=== PATIENT | male | born 1965 | race Caucasian/White ===

== ENCOUNTER → 2019-12-24 14:59 | Outpatient (BNVA) | payer OTHER, MEDICAID, SELFPAY | PROVIDERS: PCP Family Medicine; Visit Provider Family Medicine | DX: E11.9 Type 2 diabetes mellitus without complications (principal); I10 Essential (primary) hypertension; E78.2 Mixed hyperlipidemia; J44.9 Chronic obstructive pulmonary disease, unspecified | CPT/HCPCS: 80053; 80061; 83036; 84443 ==

== ENCOUNTER → 2020-01-11 09:18 | Outpatient (BNVA) | payer OTHER, MEDICAID, SELFPAY | PROVIDERS: PCP Family Medicine; Referring Provider Family Medicine; Visit Provider Anesthesiology Pain Medicine | DX: G89.29 Other chronic pain (principal); M54.16 Radiculopathy, lumbar region; M47.816 Spondylosis without myelopathy or radiculopathy, lumbar region; G62.9 Polyneuropathy, unspecified; F17.210 Nicotine dependence, cigarettes, uncomplicated; Z79.891 Long term (current) use of opiate analgesic | CPT/HCPCS: 99204 ==

== ENCOUNTER → 2020-03-29 15:03 | Outpatient (BNVA) | payer OTHER, MEDICAID, SELFPAY | PROVIDERS: PCP Family Medicine; Visit Provider Family Medicine | DX: K13.79 Other lesions of oral mucosa (principal); I50.9 Heart failure, unspecified; E11.9 Type 2 diabetes mellitus without complications; E78.2 Mixed hyperlipidemia; M54.5 Low back pain; G89.29 Other chronic pain; G62.9 Polyneuropathy, unspecified; I11.0 Hypertensive heart disease with heart failure | CPT/HCPCS: 80053; 80061; 83036; 84443 ==

== ENCOUNTER → 2020-04-01 09:25 | Outpatient (BNVA) | payer OTHER, MEDICAID, SELFPAY | PROVIDERS: PCP Family Medicine; Visit Provider Anesthesiology Pain Medicine | DX: G89.29 Other chronic pain (principal); M47.816 Spondylosis without myelopathy or radiculopathy, lumbar region; M54.16 Radiculopathy, lumbar region; G62.9 Polyneuropathy, unspecified; F17.210 Nicotine dependence, cigarettes, uncomplicated; Z79.891 Long term (current) use of opiate analgesic | CPT/HCPCS: 99213; 99214 ==

== ENCOUNTER → 2020-04-29 10:13 | Outpatient (BNVA) | payer OTHER, MEDICAID, SELFPAY | PROVIDERS: PCP Family Medicine; Visit Provider Nurse Practitioner Family | DX: Z20.828 Contact with and (suspected) exposure to other viral communicable diseases (principal) | CPT/HCPCS: 87635 ==

== ENCOUNTER 2020-06-14 20:00 | Outpatient (CLI) | payer OTHER, MEDICAID, SELFPAY | END 2020-06-14 20:01 | disposition home or self-care (01) | LOC: SLEEP 06-15 09:59 | PROVIDERS: PCP Family Medicine; Visit Provider Family Medicine | DX: G47.33 Obstructive sleep apnea (adult) (pediatric) (principal) | CPT/HCPCS: 95811 ==

== ENCOUNTER 2020-07-22 16:20 | Outpatient (CLI) | payer MEDICARE, MEDICAID, SELFPAY ==
--- NOTE | 2020-07-22 16:00 | CT_ITS ---
WS: [id number] CT LUMBAR SPINE TECHNIQUE: Noncontrast CT of the lumbar spine with coronal and sagittal reformatted images. CLINICAL INFORMATION: M54.16 - Radiculopathy, lumbar region COMPARISON: None. DLP: 2411.[address] scans at [facility] use at least one of these dose optimization techniques: automat ed exposure control; mA and/or kV adjustment per patient size (includes targeted exams where dose is matched to clinical indication); or iterative reconstruction. FINDINGS: Minimal lumbar curve. No acute compression. Hypertrophic changes at L1-2 with anterior and left later al hypertrophic spurring. L1-L2: Mild osteophytic ridging. Mild right foraminal narrowing. Spinal canal is patent. Moderate fac et arthropathy. L2-L3: Tiny left foraminal protrusion with mild left foraminal narrowing. Right foramen is patent. Mo derate facet arthropathy. L3-L4: Minimal annular bulging. Moderate facet arthropathy. Mild right and no significant left forami nal narrowing. Moderate facet arthropathy. L4-L5: Mild disc bulging with a small shallow central protrusion. Slight effacement of ventral thecal sac. Slight narrowing of the subarticular recess left greater than right. Mild bilateral foraminal n arrowing. Moderate facet arthropathy. L5-S1: Mild disc bulging with a tiny central disc osteophyte protrusion. Slight effacement of the jayde tral thecal sac. Mild right foraminal narrowing. Mild facet arthropathy. Visualized pelvic bony structures: Normal. Paravertebral soft tissues: Normal. CT/CT lumbar spine wo con* [id number] IMPRESSION: 1. Mild lumbar curve. No acute compression. Hypertrophic changes at L1-2. 2. Mild annular bulging with slight narrowing of the subarticular recess bilat erally L4-5. 3. Mild foraminal narrowing more prominent at right L1-2, left L2-3, right L3- 4, left L4-5 and right L5-S1. 4. Moderate facet arthropathy L3-L5.
== END 2020-07-22 16:21 | disposition home or self-care (01) ==
LOC: RAD 16:25
PROVIDERS: PCP Family Medicine; Visit Provider Anesthesiology Pain Medicine
DX: M54.16 Radiculopathy, lumbar region (principal); M47.816 Spondylosis without myelopathy or radiculopathy, lumbar region
CPT/HCPCS: 72131

== ENCOUNTER → 2020-07-26 17:00 | Outpatient (BNVA) | payer MEDICARE, MEDICAID, SELFPAY | PROVIDERS: PCP Family Medicine; Visit Provider Family Medicine | DX: E11.9 Type 2 diabetes mellitus without complications (principal); I10 Essential (primary) hypertension; E78.2 Mixed hyperlipidemia; M51.26 Other intervertebral disc displacement, lumbar region; G89.29 Other chronic pain; G62.9 Polyneuropathy, unspecified | CPT/HCPCS: 80053; 80061; 83036; 84443; 85025 ==

== ENCOUNTER 2020-08-16 06:00 | Outpatient (RCR) | payer MEDICARE, MEDICAID, SELFPAY | END 2020-08-31 23:59 | disposition home or self-care (01) | LOC: TPT 06:00 | PROVIDERS: PCP Family Medicine; Referring Provider Family Medicine; Visit Provider Family Medicine | DX: M51.26 Other intervertebral disc displacement, lumbar region (principal); E11.9 Type 2 diabetes mellitus without complications; I10 Essential (primary) hypertension; E78.2 Mixed hyperlipidemia | CPT/HCPCS: 97110; 97162 ==

== ENCOUNTER 2020-09-01 06:00 | Outpatient (RCR) | payer MEDICARE, MEDICAID, SELFPAY | END 2020-10-01 23:59 | disposition home or self-care (01) | LOC: TPT 06:00 | PROVIDERS: PCP Family Medicine; Referring Provider Family Medicine; Visit Provider Family Medicine | DX: M51.26 Other intervertebral disc displacement, lumbar region (principal); E11.9 Type 2 diabetes mellitus without complications; I10 Essential (primary) hypertension; E78.2 Mixed hyperlipidemia | CPT/HCPCS: 87635; 97110 ==

== ENCOUNTER → 2020-11-01 14:04 | Outpatient (BNVA) | payer MEDICARE, MEDICAID, SELFPAY | PROVIDERS: PCP Family Medicine; Visit Provider Family Medicine | DX: E11.9 Type 2 diabetes mellitus without complications (principal); R60.9 Edema, unspecified; J44.9 Chronic obstructive pulmonary disease, unspecified | CPT/HCPCS: 36416; 82962 ==

== ENCOUNTER → 2020-11-22 00:01 | Outpatient (BNVA) | payer MEDICARE, MEDICAID, SELFPAY | PROVIDERS: PCP Family Medicine; Visit Provider Nurse Practitioner Family | DX: E11.621 Type 2 diabetes mellitus with foot ulcer (principal); L97.509 Non-pressure chronic ulcer of other part of unspecified foot with unspecified severity; L03.90 Cellulitis, unspecified; L03.031 Cellulitis of right toe; L97.512 Non-pressure chronic ulcer of other part of right foot with fat layer exposed | CPT/HCPCS: 80053; 85025 ==

== ENCOUNTER 2020-11-28 08:21 | Outpatient (CLI) | payer MEDICARE, MEDICAID, SELFPAY | END 2020-11-28 08:22 | disposition home or self-care (01) | PROVIDERS: PCP Family Medicine; Visit Provider Emergency Medicine | DX: E11.621 Type 2 diabetes mellitus with foot ulcer (principal); L97.512 Non-pressure chronic ulcer of other part of right foot with fat layer exposed; F17.210 Nicotine dependence, cigarettes, uncomplicated | CPT/HCPCS: 11042; G0463 ==

== ENCOUNTER 2020-11-28 11:11 | Outpatient (CLI) | payer MEDICARE, MEDICAID, SELFPAY ==
--- NOTE | 2020-11-28 11:18 | USCV_ITS ---
Israel Tristan Age: 54 Gender: M : 1965 Exam Date: 11/28/2020 11:33 Ordering Phys: Priti Rosa DO Technologist: DEMI [place]am [place] [facility] [place]: RIGHT LOWER EXTREMITY PAIN, DM ULCER HISTORY: Lower extremity pain. PROCEDURES: Venous duplex imaging was performed in only the right lower extremity. The following venous structures were evaluated: common femoral vein, profunda vein, proximal portion of the greater saphenous vein, superficial femoral vein, and the popliteal vein. In addition, the posterior tibial and peroneal trunk were evaluated. FINDINGS: Normal 2-D Doppler and augmentation and compressibility throughout the lower extremity venous structures. Additional imaging through the proximal calf veins also reveals no thrombus. Limited evaluation of the greater saphenous vein is patent with no thrombus. CONCLUSIONS No DVT right lower extremity. Dr. Thais Stevenson DO (Electronically Signed) Final Date: 28 November 2020 11:53 S
--- NOTE | 2020-11-28 11:18 | XR_ITS ---
WS: [id number] Exam: XR foot RT min 3V* [id number] Date/Time of Exam: 11/28/2020 11:18 AM Reason For Exam: DIABETIC WITH FOOT ULCER; PAIN ALSO FOR ULTRASOUND No fracture or dislocation noted. The distal and middle phalanges of the second toe have been amputat ed. No sign of bone destruction. Old fracture deformity of the proximal phalanx of the fifth toe. No radiopaque soft tissue foreign bodies are seen. XR/XR foot RT min 3V* [id number] IMPRESSION: 1. No fracture or bone destruction noted.
== END 2020-11-28 11:12 | disposition home or self-care (01) ==
LOC: RAD 11:17
PROVIDERS: PCP Family Medicine; Visit Provider Emergency Medicine
DX: E11.621 Type 2 diabetes mellitus with foot ulcer (principal); M79.604 Pain in right leg
CPT/HCPCS: 73630; 93971

== ENCOUNTER 2020-12-12 14:15 | Outpatient (CLI) | payer MEDICARE, SELFPAY | END 2020-12-12 14:16 | disposition home or self-care (01) | LOC: WOUND 14:16 | PROVIDERS: PCP Family Medicine; Visit Provider Emergency Medicine | DX: E11.621 Type 2 diabetes mellitus with foot ulcer (principal); L97.512 Non-pressure chronic ulcer of other part of right foot with fat layer exposed; F17.210 Nicotine dependence, cigarettes, uncomplicated | CPT/HCPCS: 11042 ==

== ENCOUNTER 2020-12-12 15:07 | Outpatient (CLI) | payer MEDICARE, MEDICAID, SELFPAY ==
--- NOTE | 2020-12-12 15:13 | XR_ITS ---
WS: [id number] XR knee RT 4V [id number] REASON FOR EXAM: M25.561 - Pain in right knee FINDINGS: Moderate narrowing of the medial knee joint space. No significant subchondral or other focal bony abn ormality. Lateral knee joint space intact and relatively well-preserved. No focal bony abnormality. Patellofemoral joint space with moderate narrowing laterally. Mild lateral shift and elongation. XR/XR knee RT 4V [id number] IMPRESSION: Mild/moderate osteoarthritis of the right knee.
== END 2020-12-12 15:08 | disposition home or self-care (01) ==
PROVIDERS: PCP Family Medicine; Visit Provider Nurse Practitioner Family
DX: M17.11 Unilateral primary osteoarthritis, right knee (principal)
CPT/HCPCS: 73564

== ENCOUNTER 2020-12-22 13:41 | Outpatient (CLI) | payer MEDICARE, MEDICAID, SELFPAY | END 2020-12-22 13:42 | disposition home or self-care (01) | LOC: WOUND 13:45 | PROVIDERS: PCP Family Medicine; Visit Provider Emergency Medicine | DX: E11.621 Type 2 diabetes mellitus with foot ulcer (principal); L97.512 Non-pressure chronic ulcer of other part of right foot with fat layer exposed; F17.210 Nicotine dependence, cigarettes, uncomplicated | CPT/HCPCS: 11042 ==

== ENCOUNTER → 2021-02-28 16:57 | Outpatient (BNVA) | payer MEDICARE, MEDICAID, SELFPAY | PROVIDERS: PCP Family Medicine; Visit Provider Family Medicine | DX: R05.9 Cough, unspecified (principal) | CPT/HCPCS: 87400 ==

== ENCOUNTER → 2021-05-17 14:48 | Outpatient (BNVA) | payer MEDICARE, MEDICAID, SELFPAY | PROVIDERS: PCP Family Medicine; Visit Provider Family Medicine | DX: E11.9 Type 2 diabetes mellitus without complications (principal); E78.5 Hyperlipidemia, unspecified; I10 Essential (primary) hypertension; R10.31 Right lower quadrant pain; E78.2 Mixed hyperlipidemia; J44.9 Chronic obstructive pulmonary disease, unspecified; N20.0 Calculus of kidney | CPT/HCPCS: 80053; 80061; 81000; 83036; 84443; 85025 ==

== ENCOUNTER 2021-08-05 07:58 | Inpatient (IN) | payer MEDICARE, MEDICAID, SELFPAY ==
[2021-08-05] VITALS (11 sets, daily range): BP systolic 135–186; BP diastolic 92–127; PULSE 76–112; RESP 12–22; TEMP 36.4–36.7; O2SAT 89–93; BMI 51.3
--- NOTE | 2021-08-05 08:20 | ED_ITS ---
HPI - Nausea/Vomiting/Diarrhea General: Chief complaint: Nausea/Vomiting/Diarrhea Stated complaint: N/V Time Seen by Provider: 08/05/21 08:05 Source: patient Mode of arrival: ambulatory Limitations: no limitations History of Present Illness: 55-year-old male presents emergency room complaining of nausea vomiting and periumbilical pain. He was released from [facility] yesterday tells me they did an evaluation of his abdominal pain including evaluating for gallbladder. He has previously had an appendectomy. He has been vomiting he denied any hematemesis coffee-ground emesis no diarrhea. He has not noticed anything that makes it better or worse he did recently start glipizide which is a new medication he is diabetic is only on oral antihyperglycemic's. He denies any dysuria urgency or frequency no chest pain patient has COPD and is chronically on 2 L by nasal cannula. MD elicited complaint: nausea and vomiting Onset (ago): day(s) Description of vomiting: food contents and bilious Associated nausea: Yes Associated abdominal pain: Yes Location of pain: Periumbilical Pain consistency: intermittent Severity: moderate Quality: cramping Exacerbating factors: none Relieving factors: none Associated symtoms: Reports bloating, fatigue, anorexia, malaise, nausea and weakness; Denies anxiety, change in vision, chest pain, cough, diaphoresis, decreased urine output, dizziness, dysuria, epistaxis, fecal incontinence, fevers/chills, headache(s), myalgias, numbness, palpitations, rash, short of breath, syncope, tenesmus or tinnitus Review of Systems Const: Reports: fatigue and malaise; Denies: fever(s), chills, body aches or diaphoresis Eyes: Denies: change in vision ENMT: Denies: throat pain, tinnitus or epistaxis Card: Denies: chest pain, palpitations or syncope Resp: Denies: dyspnea, productive cough or non-productive cough GI: Reports: abdominal pain, nausea, vomiting, bloating and GI cramping; Denies: hematemesis, coffee ground emesis, fecal incontinence or change in bowel habits : Denies: flank pain, difficulty urinating, dysuria, urinary frequency, urinary urgency or hematuria Skin/Breast: Denies: rash or pruritus Neuro: Denies: headache(s) or dizziness Psych: Denies: anxiety PFSH ED PFSH: Medical History CHF (congestive heart failure) COPD (chronic obstructive pulmonary disease) Diabetes mellitus Hypertension Obesity Surgical History S/P appendectomy Family History Other CAD (coronary artery disease) Social History Smoking and tobacco status: current every day smoker Alcohol intake: never Household members: spouse Housing: House Physical Exam Const: ORIENTATION/CONSCIOUSNESS: Yes awake, Yes oriented to person, Yes oriented to place and Yes oriented to time HENMT: COMMON NORMALS: normocephalic, atraumatic and hearing grossly normal bilaterally HEAD & SCALP: normocephalic and atraumatic Resp: COMMON NORMALS: normal respiratory effort, No retractions, No use of accessory muscles and clear to auscultation bilaterally AUSCULTATION: clear to auscultation bilaterally Cardio: COMMON NORMALS: regular rate, regular rhythm and No murmurs present (Cardio) RATE: regular rate RHYTHM: regular rhythm GI: COMMON NORMALS: Soft to palpation and No hepatosplenomegaly present AUSCULTATION: Yes normoactive bowel sounds PALPATION: Yes Soft to palpation, Yes Tenderness to palpation present (GI) (periumbilical), No Guarding due to palpation present (GI) and Yes No hepatosplenomegaly present Extremity: COMMON NORMALS: normal to inspection, capillary refill normal, no clubbing, cyanosis or edema, no calf tenderness and no pedal edema Neuro: SENSORIUM/ORIENTATION: Yes oriented to person, Yes oriented to place and Yes oriented to time Skin: COMMON NORMALS: no rashes or lesions noted GENERAL SKIN EXAM: no rashes or lesions noted Course Vital Signs: Vital signs: Vital Signs Temperature 97.9 F 08/07/21 12:00 Pulse Rate 77 08/07/21 14:53 Respiratory Rate 17 08/07/21 14:53 Blood Pressure 141/96 08/07/21 12:00 Pulse Oximetry 96 08/07/21 14:53 MDM - Nausea/Vomiting/Diarrhea Medical Decision Making Persistent pancreatitis with ongoing nausea and vomiting discussed with h ospitalist will admit. Orders written Medical Records I reviewed the patient's medical records. Lab Data I reviewed the patient's lab results. : 08/07/21 03:14 08/07/21 03:14 Radiology Impressions Abdomen/Pelvis CT 08/05/21 09:35 IMPRESSION: 1. Distended gallbladder with a thin wall and no visible stones. If there is clinical evidence of cholecystitis, then ultrasound should be considered. 2. Incidental findings above. Chest X-Ray 08/05/21 09:35 IMPRESSION: 1. No acute findings. 2. Focal opacity in the lateral left lung base suggest subsegmental atelectasis or scarring. Abdomen Ultrasound 08/06/21 15:09 IMPRESSION: 1. Normal gallbladder. 2. Enlarged hyperechoic liver, consistent with steatosis/steatohepatitis. Laboratory Results WBC 13.4 10^3/uL (4.0-10.0) H 08/05/21 08:30 RBC 5.88 10^6/uL (4.1-5.3) H 08/05/21 08:30 Hgb 18.5 g/dL (11.7-16.6) H 08/05/21 08:30 Hct 54.0 % (42.0-52.0) H 08/05/21 08:30 MCV 91.8 fl (80-94) 08/05/21 08:30 MCH 31.5 pg (28.0-34.0) 08/05/21 08:30 MCHC 34.3 g/dL (30.0-36.0) 08/05/21 08:30 RDW 12.5 % (12.1-15.1) 08/05/21 08:30 Plt Count 221 10^3/cmm (130-400) 08/05/21 08:30 MPV 11.4 fL (7.4-10.4) H 08/05/21 08:30 Neut % (Auto) 76.9 % 08/05/21 08:30 Lymph % (Auto) 16.5 % 08/05/21 08:30 Bucks % (Auto) 4.8 % 08/05/21 08:30 Eos % (Auto) 1.2 % 08/05/21 08:30 Baso % (Auto) 0.4 % 08/05/21 08:30 Neut # (Auto) 10.27 10^3/uL (1.8-7.7) H 08/05/21 08:30 Lymph # (Auto) 2.2 10^3/uL (0.8-4.8) 08/05/21 08:30 Bucks # (Auto) 0.6 10^3/uL (0.2-0.9) 08/05/21 08:30 Eos # (Auto) 0.2 10^3/uL (0.0-0.8) 08/05/21 08:30 Baso # (Auto) 0.1 10^3/uL (0.0-0.1) 08/05/21 08:30 Nucleated RBC % (auto) 0 % 08/05/21 08:30 Nucleated RBCs # 0.0 /100WBC 08/05/21 08:30 Specimen Type Arterial 08/05/21 08:40 Sample Site Radial, right 08/05/21 08:40 ABG pH 7.40 (7.35-7.45) 08/05/21 08:40 ABG pCO2 54.2 mmHg (35-45) H 08/05/21 08:40 ABG pO2 53.6 mmHg (80.0-100.0) L 08/05/21 08:40 ABG HCO3 33.2 mmol/L (22-26) H 08/05/21 08:40 ABG O2 Saturation 89.1 08/05/21 08:40 ABG Base Excess 6.2 mmol/L (-2.0-2.0) H 08/05/21 08:40 Davi Test Pos 08/05/21 08:40 A-a O2 Gradient 14.1 mmHg (5-10) H 08/05/21 08:40 Hematocrit 55.2 % (42-52) H 08/05/21 08:40 Hgb O2 Saturation 86.3 % (95-100) L 08/05/21 08:40 Carboxyhemoglobin 2.9 %THgb (0.4-20.1) 08/05/21 08:40 Methemoglobin 0.3 % (0.4-1.5) L 08/05/21 08:40 Total Hemoglobin 18.0 g/dL (14-18) 08/05/21 08:40 Sodium 142.0 mmol/L (131-143) 08/05/21 08:40 Potassium 3.9 mmol/L (3.5-5.0) 08/05/21 08:40 Glucose 108.0 mg/dL (70-115) 08/05/21 08:40 Ionized Calcium 1.2 mmol/L (1.1-1.4) 08/05/21 08:40 O2 Delivery Device Nc 08/05/21 08:40 O2 Liters/Min 3.0 % 08/05/21 08:40 FiO2 32.0 % 08/05/21 08:40 Bridge Maintenance Worker ID Gd 08/05/21 08:40 Sodium 141 mmol/L (136-145) 08/05/21 08:30 Potassium 4.3 mmol/L (3.5-5.1) 08/05/21 08:30 Chloride 100 mmol/L (98-107) 08/05/21 08:30 Carbon Dioxide 32 mmol/L (22-29) H 08/05/21 08:30 Anion Gap 13.3 (5-19) 08/05/21 08:30 BUN 7 mg/dL (6-20) 08/05/21 08:30 Creatinine 0.8 mg/dL (0.7-1.2) 08/05/21 08:30 GFR Calculation 101.1 mL/min (90-130) 08/05/21 08:30 Glucose 111 mg/dL (65-115) 08/05/21 08:30 Estimat Average Glucose 174 08/05/21 08:30 Hemoglobin A1c 7.7 % (4.0-6.0) H 08/05/21 08:30 Calculated Osmolality 291 mOsm/kg (285-295) 08/05/21 08:30 Calcium 9.4 mg/dL (8.5-10.5) 08/05/21 08:30 Total Bilirubin 0.8 mg/dL (0.15-1.2) 08/05/21 08:30 AST 16 U/L (0-40) 08/05/21 08:30 ALT 30 U/L (0-41) 08/05/21 08:30 Alkaline Phosphatase 101 IU/L (40-130) 08/05/21 08:30 Troponin T Baseline 6 ng/L (0-15) 08/05/21 08:30 Troponin T 120 Minute 6.00 ng/L (0-15) 08/05/21 10:58 Delta Troponin T 0 ABS# (0-10) 08/05/21 10:58 Total Protein 8.1 g/dL (6.6-8.7) 08/05/21 08:30 Albumin 3.8 g/dL (3.5-5.2) 08/05/21 08:30 Globulin 4.3 g/dL (1.3-4.6) 08/05/21 08:30 Lipase 121 U/L (13-60) H 08/05/21 08:30 Urine Color Yellow (Yellow) 08/05/21 08:30 Urine Appearance Clear (CLEAR) 08/05/21 08:30 Urine pH 9 (5-7) H 08/05/21 08:30 Ur Specific [place] 1.020 (1.005-1.030) 08/05/21 08:30 Urine Protein 1+ (Negative) H 08/05/21 08:30 Urine Glucose (UA) 4+ (Normal) H 08/05/21 08:30 Urine Ketones Negative (Negative) 08/05/21 08:30 Urine Blood Neg (Negative) 08/05/21 08:30 Urine Nitrate Negative (Negative) 08/05/21 08:30 Urine Bilirubin Neg (Negative) 08/05/21 08:30 Prot Sulfosalicylic Acd Positive (Negative) 08/05/21 08:30 Urine Urobilinogen Norm mg/dL (Negative) 08/05/21 08:30 Ur Leukocyte Esterase Negative (Negative) 08/05/21 08:30 Urine RBC None /hpf (0-2) 08/05/21 08:30 Urine WBC Rare /hpf (0-5) 08/05/21 08:30 Ur Squamous Epith Cells None /hpf (0-5) 08/05/21 08:30 Amorphous Sediment Not Reportable 08/05/21 08:30 Urine Bacteria None /hpf (NONE) 08/05/21 08:30 Discharge Plan Discharge Patient Disposition: Admitted As Inpatient Admit Provider: Elvira Sharif Clinical Impression: Pancreatitis, Diabetes mellitus, COPD (chronic obstructive pulmonary disease), Obesity, Hypertension, Nausea & vomiting Condition: Stable Discharge Diet: GI Soft Discharge Activity: Resume usual activity and Oxygen as instructed Coding Level of Care Code ED Field Court Researcher for Chg Fwd Exam Detailed
--- NOTE | 2021-08-05 08:27 | PC.NURSE ---
pt placed on continuous spo2, nibp, and cm.
[2021-08-05] MEDS: sodium chloride 0.9% 1,000 ML 999 ML IV ×2 (08:32→13:10)
[2021-08-05] MEDS: ondansetron 2 mg/ML SDV 2 mL 4 MG IVP ×3 (08:32→19:43)
[2021-08-05 08:40] LABS: Basophils # 0.1 10^3/uL (0.0-0.1); Basophils % 0.4 %; Eosinophils # 0.2 10^3/uL (0.0-0.8); Eosinophils % 1.2 %; Hemoglobin 18.5 g/dL (11.7-16.6); Lymphocytes # 2.2 10^3/uL (0.8-4.8); Lymphocytes % 16.5 %; Mean Corpuscular HGB Conc 34.3 g/dL (30.0-36.0); Mean Corpuscular Hemoglobin 31.5 pg (28.0-34.0); Mean Corpuscular Volume 91.8 fl (80-94); Mean Platelet Volume 11.4 fL (7.4-10.4); Monocytes # 0.6 10^3/uL (0.2-0.9); Monocytes % 4.8 %; Neutrophils # 10.27 10^3/uL (1.8-7.7); Neutrophils % 76.9 %; Nucleated Red Blood Cells % 0 %; Platelet Count 221 10^3/cmm (130-400); Red Blood Count 5.88 10^6/uL (4.1-5.3); Red Cell Distribution Width 12.5 % (12.1-15.1); White Blood Count 13.4 10^3/uL (4.0-10.0)
[2021-08-05 08:56] LABS: ABG PCO2 54.2 mmHg (35-45); Alveolar-Arterial Oxygen Gradi 14.1 mmHg (5-10); Arterial Blood Gas Hematocrit 55.2 % (42-52); Base Excess ABG 6.2 mmol/L (-2.0-2.0); Blood Gas Allen Test Pos; Blood Gas Operator Identificat GD; Blood Gas Sample Site Radial, right; Blood Gas Sample Type Arterial; Carboxyhemoglobin 2.9 %THgb (0.4-20.1); HCO3 ABG 33.2 mmol/L (22-26); HGB O2 Sat 86.3 % (95-100); Ionized Calcium Level - ABG 1.2 mmol/L (1.1-1.4); Methemoglobin 0.3 % (0.4-1.5); Oxygen Device NC; Oxygen Saturation ABG 89.1; PO2 ABG 53.6 mmHg (80.0-100.0); Potassium Level - ABG 3.9 mmol/L (3.5-5.0)
[2021-08-05 09:01] LABS: Alanine Aminotransferase 30 U/L (0-41); Albumin Level 3.8 g/dL (3.5-5.2); Alkaline Phosphatase 101 IU/L (40-130); Blood Urea Nitrogen 7 mg/dL (6-20); Calcium 9.4 mg/dL (8.5-10.5); Carbon Dioxide 32 mmol/L (22-29); Chloride 100 mmol/L (98-107); Globulin 4.3 g/dL (1.3-4.6); Glomerular Filtration Rate 101.1 mL/min (90-130); Glucose 111 mg/dL (65-115); Osmolality Calculated 291 mOsm/kg (285-295); Sodium 141 mmol/L (136-145); Total Bilirubin 0.8 mg/dL (0.15-1.2); Total Protein 8.1 g/dL (6.6-8.7)
[2021-08-05 09:04] LABS: Add Urine Microscopic? YES; Bilirubin Urine Neg (Negative); Blood Urine Neg (Negative); Glucose Urine UA 4+ (Normal); Ketones Urine Negative (Negative); Leukocyte Esterase Urine Negative (Negative); Nitrate Urine Negative (Negative); Protein Urine 1+ (Negative); Sulfosalicylic Acid Urine Positive (Negative); Urine Appearance Clear (CLEAR); Urine Color Yellow (Yellow); Urobilinogen Urine Norm (Negative); pH Urine 9 (5-7)
[2021-08-05 09:05] LABS: WBC Urine RARE /hpf (0-5)
[2021-08-05] MEDS: morphine 4 mg/mL SDV 1 mL 2 MG IVP (09:05)
[2021-08-05 09:06] LABS: Add Urine Culture? No
[2021-08-05 09:07] LABS: Anion Gap 13.3 (5-19); Aspartate Amino Transferase 16 U/L (0-40); Potassium 4.3 mmol/L (3.5-5.1)
--- NOTE | 2021-08-05 09:35 | XRR_ITS ---
PROCEDURE INFORMATION: Exam: XR Chest Exam date and time: 08/05/2021 9:48 AM Age: 55 years old Clinical indication: Cough and dyspnea; Additional info: Dyspnea/cough TECHNIQUE: Imaging protocol: XR of the chest. Views: 1 view. COMPARISON: No relevant prior studies available. FINDINGS: Lungs: There is no consolidation. Focal opacity in the left lateral costophrenic sulcus noted. Pleural spaces: There is no pleural effusion or pneumothorax. Heart/Mediastinum: The cardiac silhouette is within normal limits of size given AP technique. Bones/joints: Bones are unremarkable. XR/XR chest 1V portable [id number] IMPRESSION: 1. No acute findings. 2. Focal opacity in the lateral left lung base suggest subsegmental atelectasis or scarring.
--- NOTE | 2021-08-05 09:35 | CTR_ITS ---
PROCEDURE INFORMATION: Exam: CT Abdomen And Pelvis Without Contrast Exam date and time: 08/05/2021 10:28 AM Age: 55 years old Clinical indication: Abdominal pain; Generalized; Prior surgery; Surgery date: 6+ months; Surgery type: Appy TECHNIQUE: Imaging protocol: Computed tomography of the abdomen and pelvis without contrast. Radiation optimization: All CT scans at this facility use at least one of these dose optimization techniques: automated exposure control; mA and/or kV adjustment per patient size (includes targeted exams where dose is matched to clinical indication); or iterative reconstruction. COMPARISON: CR (CHEST, ) 08/05/2021 9:48 AM RADIATION DOSE METRICS: Total DLP (mGy-cm): 2004.76 FINDINGS: Lungs: There is subsegmental atelectasis in the left lung. Liver: The liver is mildly enlarged. There is no focal liver abnormality. Gallbladder and bile ducts: The gallbladder is distended. The wall is thin. No calcified stones are seen. There is no intrahepatic or extrahepatic bile duct dilation. Pancreas: The pancreas is unremarkable. Spleen: The spleen is unremarkable. Adrenal glands: The adrenal glands are unremarkable. Kidneys and ureters: The kidneys are unremarkable. No hydronephrosis or stones. No ureteral dilation. Stomach and bowel: The stomach is unremarkable. The small bowel is nondilated. The colon is unremarkable. Appendix: The appendix is absent. Intraperitoneal space: There is no free air or significant intraperitoneal free fluid. Vasculature: The aorta is unremarkable. There is no aneurysm. Lymph nodes: There is no lymphadenopathy in the retroperitoneum, mesentery, pelvis or inguinal regions. Urinary bladder: The urinary bladder is unremarkable. Reproductive: The prostate and seminal vesicles are unremarkable. Bones/joints: There is mild degenerative disease in the lumbar spine. The pelvis and hips are unremarkable. Soft tissues: The abdominal wall is intact. CT/CT abdomen pelvis wo con [id number] IMPRESSION: 1. Distended gallbladder with a thin wall and no visible stones. If there is clinical evidence of cholecystitis, then ultrasound should be considered. 2. Incidental findings above.
--- NOTE | 2021-08-05 09:36 | ECG_ITS ---
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 Measurements Intervals [place] Rate: 104 P: 40 [place]: 180 QRS: 238 QRSD: 154 T: 9 QT: 378 QTc: 499 Interpretive Statements SINUS TACHYCARDIA RIGHT AXIS DEVIATION [QRS AXIS > 100] RIGHT BUNDLE BRANCH BLOCK [120+ ms QRS DURATION, UPRIGHT V1, 40+ ms S IN I/aVL/V4/V5/V6] ANTERIOR MYOCARDIAL INFARCTION , OF INDETERMINATE AGE [40+ ms Q WAVE AND/OR ST/T ABNORMALITY IN V3/V4] INTERPRETATION BASED ON A DEFAULT AGE OF 40 YEARS No previous ECG available for comparison Electronically Signed On 08-06-2021 9:19:25 CDT by Severiano Villanueva M.D. [email or web address]
[2021-08-05 10:05] LABS: Troponin(5th) Baseline 6 ng/L (0-15)
[2021-08-05 11:07] LABS: Lipase 121 U/L (13-60)
--- NOTE | 2021-08-05 11:36 | ECG_ITS ---
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 Measurements Intervals [place] Rate: 90 P: 13 [place]: 190 QRS: 148 QRSD: 157 T: 63 QT: 408 QTc: 501 Interpretive Statements SINUS RHYTHM RIGHT BUNDLE BRANCH BLOCK [120+ ms QRS DURATION, UPRIGHT V1, 40+ ms S IN I/aVL/V4/V5/V6] LEFT POSTERIOR FASCICULAR BLOCK [QRS AXIS > 109, INFERIOR Q] POSSIBLE ANTERIOR MYOCARDIAL INFARCTION , OF INDETERMINATE AGE [30 ms Q WAVE IN V3/V4, OR R < 0.2 mV IN V4] Compared to ECG 08/05/2021 08:25:38 Left posterior fascicular block now present Sinus tachycardia no longer present Right-axis deviation no longer present Myocardial infarct finding still present Electronically Signed On 08-06-2021 9:25:27 CDT by Severiano Villanueva M.D. [id number]
--- NOTE | 2021-08-05 11:38 | PC.NURSE ---
Patient provided with water and educated on p.o. challenge. Will reassess later.
[2021-08-05] MEDS: morphine 4 mg/mL SDV 1 mL IVP ×4 (11:42→23:50)
--- NOTE | 2021-08-05 12:40 | PM.HP ---
Providers/Chief Complaint Chief Complaint: N/V History of Present Illness Israel Tristan is a 55 year old male Medications/Allergies Home Medications Medication Instructions Recorded Confirmed Last Taken Type albuterol sulfate 90 mcg/actuation 2 puff INHALATION Q8H PRN 08/05/21 08/05/21 Unknown History aerosol inhaler aspirin 325 mg tablet 325 mg PO DAILY 08/05/21 08/05/21 08/04/21 History atorvastatin 80 mg tablet 80 mg PO DAILY 08/05/21 08/05/21 08/04/21 History carvedilol 12.5 mg tablet 12.5 mg PO BID 08/05/21 08/05/21 08/04/21 History empagliflozin 25 mg tablet 25 mg PO DAILY 08/05/21 08/05/21 08/04/21 History (Jardiance) fluticasone fur. 100 mcg-umeclid 1 inh INHALATION DAILY 08/05/21 08/05/21 08/04/21 History 62.5 mcg-vilant 25 mcg inhalat.powder (Trelegy Ellipta) fluticasone propionate 50 1 spray INTRANASAL BID PRN 08/05/21 08/05/21 Unknown History mcg/actuation nasal spray,suspension furosemide 20 mg tablet 20 mg PO DAILY 08/05/21 08/05/21 08/04/21 History glimepiride 1 mg tablet 1 mg PO BID 08/05/21 08/05/21 08/04/21 History icosapent ethyl 1 gram capsule 2 g PO BID 08/05/21 08/05/21 08/04/21 History (Vascepa) liraglutide 0.6 mg/0.1 mL (18 mg/3 1.8 mg SUBCUT DAILY 08/05/21 08/05/21 08/04/21 History mL) subcutaneous pen injector (Victoza 3-Joe) metformin 1,000 mg tablet 1,000 mg PO BID 08/05/21 08/05/21 08/04/21 History naloxone 4 mg/actuation nasal spray 4 spray INTRANASAL . DIRECTED PRN 08/05/21 08/05/21 Unknown History oxycodone-acetaminophen 7.5 mg-325 1 tab PO Q8H PRN 08/05/21 08/05/21 Unknown History mg tablet pregabalin 300 mg capsule 300 mg PO BID 08/05/21 08/05/21 08/04/21 History Allergies Allergy/AdvReac Type Severity Reaction Status Date / Time tramadol Allergy ALGY-Swell Verified 08/05/21 08:06 Lip/Tongue/Throat PFSH Acute PFSH: Medical History (Updated 08/05/21 @ 08:25 by Kyaw Zhong DO) COPD (chronic obstructive pulmonary disease) Diabetes mellitus Hypertension Obesity Surgical History (Updated 08/05/21 @ 08:25 by Kyaw Zhong DO) S/P appendectomy Vitals/I&O/Wt Last Vital Signs Temp 98.0 F 08/05/21 08:08 Pulse 112 H 08/05/21 08:08 Resp 22 H 08/05/21 11:42 BP 186/127 08/05/21 08:08 Pulse Ox 92 08/05/21 11:42 Weight last 48 hrs Weight 181.437 kg Data : 08/05/21 08:30 08/05/21 08:30 Coding Level of Care Code Acute Grader Green Meat for Luis Vasquez
[2021-08-05 12:57] LABS: Troponin 5 2HR Delta 0 ABS# (0-10)
--- NOTE | 2021-08-05 14:20 | PC.NURSE ---
Report called to Tasha on [facility].
[2021-08-05] MEDS: sodium chloride 0.9% 1,000 ML 100 ML IV (15:22)
--- NOTE | 2021-08-05 15:36 | ECG_ITS ---
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 Measurements Intervals [place] Rate: 88 P: 79 [place]: 197 QRS: -81 QRSD: 160 T: -10 QT: 403 QTc: 489 Interpretive Statements SINUS RHYTHM RIGHT BUNDLE BRANCH BLOCK [120+ ms QRS DURATION, UPRIGHT V1, 40+ ms S IN I/aVL/V4/V5/V6] LEFT ANTERIOR FASCICULAR BLOCK [QRS AXIS <= -45, QR IN I, RS IN II] POSSIBLE ANTERIOR MYOCARDIAL INFARCTION , OF INDETERMINATE AGE [30 ms Q WAVE IN V3/V4, OR R < 0.2 mV IN V4] INFERIOR MYOCARDIAL INFARCTION , OF INDETERMINATE AGE [40+ ms Q WAVE AND/OR ST/T ABNORMALITY IN II/aVF] Compared to ECG 08/05/2021 11:52:27 Left anterior fascicular block now present Left posterior fascicular block no longer present Myocardial infarct finding still present Electronically Signed On 08-06-2021 9:26:09 CDT by Severiano Villanueva M.D. [id number]
--- NOTE | 2021-08-05 15:44 | P.HP_ITS ---
Providers/Chief Complaint Admitting Physician: Elvira Sharif MD Chief Complaint: N/V History of Present Illness Israel Tristan is a 55 year old male present to the hospital with chief complaint of abdominal pain and emesis. Patient is stating that his symptoms started on 08/01 after he ate [employer] hamburger. In total he has had more t ventura 10 episodes of emesis, he has not noticed any fever, diarrhea. He has been taking fish oil capsules for his triglycerides. He is diabetic, uses oxygen 2 to 3 L at home for his COPD. Active smoker 1 pack/day. Does not drink alcohol. Lives with his . He went to [facility] where CT abdomen pelvis revealed pancreatitis no gallstones or pericholecystic fluid collection. He ca me to our hospital for further evaluation. I have requested triglyceride level, he is hypertensive, recheck blood pressure, can give hydralazine if systolic blood pressure higher than 180 and diastolic above 110 mmHg, Review of Systems Const: Denies: fever(s) Eyes: Denies: change in vision ENMT: Denies: throat pain Card: Denies: chest pain Resp: Denies: dyspnea GI: Reports: abdominal pain, nausea and vomiting : Denies: flank pain Musc: Denies: neck pain Skin/Breast: Denies: rash Neuro: Denies: headache(s) Psych: Denies: anxiety Endo: Denies: polyuria Pedro/Lymph: Denies: easy bruising All/Imm: Denies: urticaria Medications/Allergies Home Medications Medication Instructions Recorded Confirmed Last Taken Type albuterol sulfate 90 mcg/actuation 2 puff INHALATION Q8H PRN 08/05/21 08/05/21 Unknown History aerosol inhaler aspirin 325 mg tablet 325 mg PO DAILY 08/05/21 08/05/21 08/04/21 History atorvastatin 80 mg tablet 80 mg PO DAILY 08/05/21 08/05/21 08/04/21 History carvedilol 12.5 mg tablet 12.5 mg PO BID 08/05/21 08/05/21 08/04/21 History empagliflozin 25 mg tablet 25 mg PO DAILY 08/05/21 08/05/21 08/04/21 History (Jardiance) fluticasone fur. 100 mcg-umeclid 1 inh INHALATION DAILY 08/05/21 08/05/21 08/04/21 History 62.5 mcg-vilant 25 mcg inhalat.powder (Trelegy Ellipta) fluticasone propionate 50 1 spray INTRANASAL BID PRN 08/05/21 08/05/21 Unknown History mcg/actuation nasal spray,suspension furosemide 20 mg tablet 20 mg PO DAILY 08/05/21 08/05/21 08/04/21 History glimepiride 1 mg tablet 1 mg PO BID 08/05/21 08/05/21 08/04/21 History icosapent ethyl 1 gram capsule 2 g PO BID 08/05/21 08/05/21 08/04/21 History (Vascepa) liraglutide 0.6 mg/0.1 mL (18 mg/3 1.8 mg SUBCUT DAILY 08/05/21 08/05/21 08/04/21 History mL) subcutaneous pen injector (Victoza 3-Joe) metformin 1,000 mg tablet 1,000 mg PO BID 08/05/21 08/05/21 08/04/21 History naloxone 4 mg/actuation nasal spray 4 spray INTRANASAL . DIRECTED PRN 08/05/21 08/05/21 Unknown History oxycodone-acetaminophen 7.5 mg-325 1 tab PO Q8H PRN 08/05/21 08/05/21 Unknown History mg tablet pregabalin 300 mg capsule 300 mg PO BID 08/05/21 08/05/21 08/04/21 History Allergies Allergy/AdvReac Type Severity Reaction Status Date / Time tramadol Allergy ALGY-Swell Verified 08/05/21 08:06 Lip/Tongue/Throat PFSH Acute PFSH: Medical History CHF (congestive heart failure) COPD (chronic obstructive pulmonary disease) Diabetes mellitus Hypertension Obesity Surgical History S/P appendectomy Family History (Updated 08/05/21 @ 15:50 by Elsa Riley MD) Other CAD (coronary artery disease) Social History (Updated 08/05/21 @ 15:50 by Elsa Riley MD) Smoking and tobacco status: current every day smoker Alcohol intake: never Household members: spouse Housing: House Vitals/I&O/Wt Last Vital Signs Temp 98.0 F 08/05/21 08:08 Pulse 94 08/05/21 14:44 Resp 18 08/05/21 15:21 BP 175/125 08/05/21 14:44 Pulse Ox 90 08/05/21 14:44 Weight last 48 hrs Weight 181.437 kg Physical Exam Narrative: WBC male Not in any acute distress Currently doing well on room air 92% Abdomen slightly tender around umbilicus on deep palpation No guarding or rigidity Awake and alert Nonfocal neuro exam No sign of heart failure EOMI, PERRLA Data : 08/05/21 08:30 08/05/21 08:30 A&P Assessment and plan (1) Diabetes mellitus: Status: Acute (2) Hypertension: Status: Acute (3) Obesity: Status: Acute (4) COPD (chronic obstructive pulmonary disease): Status: Acute Plan Pancreatitis Check triglyceride level No signs of gallstones on CT scan Do gallbladder ultrasound Will keep on clear liquid diet Continue fluids. Opioids for analgesia COPD without acute exacerbation Hypertension: A. fib related to pain and use of fluids, I will continue his Coreg, hydralazine can be given one-time Hold Lasix Patient is full code Clear liquid diet DVT prophylaxis: Lovenox Attestations Medical Necessity Statement*: Anticipate more than 2 midnights for management of pancreatitis Time Spent in Patient Care: 40mins Coding Level of Care Code Acute Feed Handler for Chg Fwd Diagnoses Diabetes mellitus E11.9 Hypertension I10 Obesity E66.9 COPD (chronic obstructive pulmonary disease) J44.9
[2021-08-05 16:01] LABS: Procalcitonin 0.11 ng/mL (0-0.5); Thyroid Stimulating Hormone 0.99 uIU/mL (0.27-4.20)
[2021-08-05] MEDS: lisinopril 10 mg Tablet PO (16:26)
[2021-08-05] MEDS: carvedilol 25 mg Tablet PO ×2 (16:26→20:55)
[2021-08-05] MEDS: pantoprazole 40 mg SDV IVP (16:26)
[2021-08-05 16:53] LABS: Estmated Average Glucose 174; Hemoglobin A1C 7.7 % (4.0-6.0)
[2021-08-05 16:54] LABS: Triglycerides 150 mg/dL (0-150)
[2021-08-05] MEDS: pregabalin 100 mg Capsule 200 MG PO (17:02)
[2021-08-05] MEDS: nicotine 21 mg Patch 1 PATCH TRANSDERMA (17:03)
[2021-08-05 17:06] LABS: Troponin 5 6HR Delta 0 ng/L (0-12)
[2021-08-05 17:33] LABS: Amphetamines Screen Urine Negative (Negative); Barbiturates Screen Urine Negative (Negative); Benzodiazepines Screen Urine Negative (Negative); Cocaine Screen Urine Negative (Negative); Opiate Screen Urine Positive (Negative); PCP Screen Urine Negative (Negative); THC Screen Urine Negative (Negative)
[2021-08-05 18:41] LABS: Triglycerides 156 mg/dL (0-150)
[2021-08-05 18:42] LABS: Chol HDL Ratio 4.48 mg/dL (1.0-5.00); Cholesterol 112 mg/dL (0-200); HDL Cholesterol 25 mg/dL (60-100); LDL Cholesterol Calculated 57 mg/dL (50-129); Triglycerides 150 mg/dL (0-150); VLDL Cholestrol Calculation 30 mg/dL (0-30)
[2021-08-05 18:44] LABS: Lactic Sepsis W/Reflex 0.6 mmol/L (0.5-2.2)
[2021-08-05] MEDS: ipratropium-albuterol 3 mL Neb INHALATION (20:31)
[2021-08-05] MEDS: polyethylene glycol 3350 Pkt 17 gm PO (21:07)
[2021-08-05] MEDS: HYDROcodone-acetaminophen 5-325 mg Tablet 1 TAB PO (21:32)
[2021-08-06] VITALS (18 sets, daily range): BP systolic 87–146; BP diastolic 60–94; PULSE 66–80; RESP 12–18; TEMP 36.4–37.1; O2SAT 70–95
[2021-08-06] MEDS: sodium chloride 0.9% 1,000 ML 100 ML IV ×3 (02:17→22:15)
[2021-08-06] MEDS: ipratropium-albuterol 3 mL Neb INHALATION ×4 (02:53→20:27)
[2021-08-06 03:59] LABS: Basophils # 0.1 10^3/uL (0.0-0.1); Basophils % 0.5 %; Eosinophils # 0.2 10^3/uL (0.0-0.8); Eosinophils % 2.3 %; Hematocrit 46.7 % (42.0-52.0); Hemoglobin 15.3 g/dL (11.7-16.6); Lymphocytes % 43.4 %; Mean Corpuscular HGB Conc 32.8 g/dL (30.0-36.0); Mean Corpuscular Hemoglobin 31.2 pg (28.0-34.0); Mean Corpuscular Volume 95.1 fl (80-94); Mean Platelet Volume 11.4 fL (7.4-10.4); Monocytes # 0.8 10^3/uL (0.2-0.9); Monocytes % 8.4 %; Neutrophils # 4.18 10^3/uL (1.8-7.7); Neutrophils % 45.3 %; Nucleated Red Blood Cells % 0 %; Platelet Count 190 10^3/cmm (130-400); Red Blood Count 4.91 10^6/uL (4.1-5.3); White Blood Count 9.2 10^3/uL (4.0-10.0)
[2021-08-06] MEDS: morphine 4 mg/mL SDV 1 mL IVP ×5 (04:08→20:06)
[2021-08-06] MEDS: ondansetron 2 mg/ML SDV 2 mL 4 MG IVP (04:11)
[2021-08-06 04:27] LABS: Alanine Aminotransferase 21 U/L (0-41); Albumin Level 3.3 g/dL (3.5-5.2); Alkaline Phosphatase 78 IU/L (40-130); Anion Gap 8.8 (5-19); Aspartate Amino Transferase 14 U/L (0-40); Blood Urea Nitrogen 7 mg/dL (6-20); Calcium 8.1 mg/dL (8.5-10.5); Carbon Dioxide 31 mmol/L (22-29); Chloride 102 mmol/L (98-107); Globulin 3.4 g/dL (1.3-4.6); Glomerular Filtration Rate 101.1 mL/min (90-130); Glucose 135 mg/dL (65-115); Lipase 48 U/L (13-60); Osmolality Calculated 286 mOsm/kg (285-295); Phosphorus 4.7 mg/dL (2.5-4.5); Potassium 3.8 mmol/L (3.5-5.1); Sodium 138 mmol/L (136-145); Total Bilirubin 0.5 mg/dL (0.15-1.2); Total Protein 6.7 g/dL (6.6-8.7)
[2021-08-06] MEDS: HYDROcodone-acetaminophen 5-325 mg Tablet 1 TAB PO ×3 (06:15→14:53)
[2021-08-06] MEDS: pregabalin 100 mg Capsule 200 MG PO ×2 (08:13→16:47)
[2021-08-06] MEDS: carvedilol 25 mg Tablet PO (08:13)
[2021-08-06] MEDS: nicotine 21 mg Patch 1 PATCH TRANSDERMA (08:14)
--- NOTE | 2021-08-06 08:39 | P.PN_ITS ---
Subjective Subjective: Seen this morning. He is on 2.5 L oxygen at this time. He states he has a history of heart failure with reduced ejection fraction about 45%. He had a cath 3 years ago with no evidence of coronary artery disease. COPD, obstructive sleep apnea. Diabetes, hypertension, hyperlipidemia. He also has a questionable history of a collapsed lung. He states that some of the best he can describe it at this time. 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 His PCP is Dr. Parisa Saldivar. He states he feels a little bit better today. He has been tolerating liquid okay. He states that he is okay to try some solid f ood today. He is currently on morphine 4 mg every 4 hours as needed. He is not having any abdominal pain at this time when I saw him. Denies chest pain, shortness of breath. He stated his epigastric area does feel little bit sore. Paperwork reviewed from [facility]. He was admitted for severe mid abdominal pain nausea vomiting. He thought he ate bad food. Nothing made better or worse. He reported vomiting before going to the ER but not since ER visit. He had a CT scan there which was negative. No gallstones identified on CT. Vitals/I&O/Wt Last Vital Signs Temp 98.0 F 08/06/21 08:00 Pulse 66 08/06/21 08:00 Resp 14 08/06/21 08:23 BP 87/60 08/06/21 08:00 Pulse Ox 92 08/06/21 08:23 08/05/21 08/06/21 08/06/21 22:59 06:59 14:59 Intake Total 1999 1709 / 3709 Balance 1999 1709 / 3709 Weight last 48 hrs Weight 181.437 kg Physical Exam Narrative: General: Alert oriented x3, patient seen sitting up in bed appearing comfortable. Obese large male. HEENT: Normocephalic, atraumatic, EOMI, breathing normally on nasal cannula no acute respiratory distress. Cardio: Regular rate rhythm, normal S1-S2, no murmurs rubs gallops, JVD unable to be assessed secondary to body habitus. Muffled heart sounds due to body habitus. Respiratory: Good bilateral air entry, no wheezes no rhonchi appreciated GI: Abdomen soft, nontender, obese large rounded abdomen bowel sounds + Behavior: Appropriate and cooperative Extremities: 1+ generalized edema bilateral lower extremities no cyanosis Data : 08/06/21 03:35 08/06/21 03:35 A&P Assessment and plan (1) Pancreatitis: Status: Acute (2) S/P appendectomy: Status: Acute (3) Obesity: Status: Acute (4) COPD (chronic obstructive pulmonary disease): Status: Acute (5) Diabetes mellitus: Status: Acute (6) Hypertension: Status: Acute (7) Nausea & vomiting: Status: Acute (8) Obstructive sleep apnea: Status: Acute (9) Sleep apnea treated with nocturnal BiPAP: Status: Acute Plan #Nausea vomiting, dehydration most likely secondary to gastroparesis secondary to diabetes mellitus #Possible mild pancreatitis #Diabetes mellitus type 2 #History of heart failure with reduced ejection fraction 45% #Hypertension #Hyperlipidemia #COPD not in acute exacerbation #Obstructive sleep apnea, on Bipap at home but lost his machine so longer using. ? Patient has tolerated clear liquid so far okay. We will advance his diet to GI soft. I am suspecting some sort of gastroparesis as patient was tolerating bland diet okay at the other hospital as well but after he had a [employer] burger he started having nausea vomiting again. I will place him on a GI soft diet and see how he does. -CT abdomen shows distended gallbladder with thin wall and no visible stones. I will check right upper quadrant ultrasound. -His nausea vomiting can be attributed to Victoza use as well. I will hold that for now and advised him to hold it until seen by PCP at discharge. ? Continue Zofran for nausea ? Bilirubin normal. Lipase 121 admission. Today 48. -Stop IV morphine. Switch to hydrocodone 5 mg every 4 hours as needed for pain. ? Continue insulin sliding scale for blood sugar control ? Continue to hold furosemide today ? Order CPAP for night ? Continue carvedilol, aspirin, atorvastatin ? Triglycerides 156. Continue patient on Vascepa. ? Continue pregabalin 300 twice daily -He will need a pulmonology referral for follow-up on his COPD. Full code DVT prophylaxis Lovenox Attestations Medical Necessity Statement*: Advance diet today. Will need to stay in the hospital another day for monitoring. If patient able to tolerate diet he will be discharged home. Coding Level of Care Code Acute Industrial Chemistry Teacher for Chg Fwd Diagnoses Pancreatitis K85.90 S/P appendectomy Z90.49 Obesity E66.9 COPD (chronic obstructive pulmonary disease) J44.9 Diabetes mellitus E11.9 Hypertension I10 Nausea & vomiting R11.2 Obstructive sleep apnea G47.33 Sleep apnea treated with nocturnal BiPAP G47.30
[2021-08-06 11:43] LABS: Glucose Point of Care 104 mg/dL (70-110)
[2021-08-06 11:43] LABS: Glucose Point of Care 133 mg/dL (70-110)
[2021-08-06 11:43] LABS: Glucose Point of Care 106 mg/dL (70-110)
[2021-08-06 11:43] LABS: Glucose Point of Care 113 mg/dL (70-110)
--- NOTE | 2021-08-06 15:09 | USR_ITS ---
PROCEDURE INFORMATION: Exam: US Abdomen, Limited; Right Upper Quadrant Exam date and time: 08/06/2021 3:29 PM Age: 55 years old Clinical indication: Other: See CT; Patient HX: Abd pain; Additional info: R/O gall stones TECHNIQUE: Imaging protocol: US abdomen. Real time ultrasound with image documentation. Limited exam focused on the right upper quadrant. COMPARISON: CT abdomen pelvis wo con [id number] 08/05/2021 10:28 AM FINDINGS: Liver: Enlarged hyperechoic liver measuring 25.6 cm. Gallbladder: Normal. No gallstones. There is no gallbladder wall thickening. Biliary ducts: Normal. No stones. No dilation. Pancreas: The pancreas is obscured by bowel gas. Right kidney: Normal. No mass. No hydronephrosis. Portal venous: Hepatopetal flow in the main portal vein. US/US abdomen limited [id number] IMPRESSION: 1. Normal gallbladder. 2. Enlarged hyperechoic liver, consistent with steatosis/steatohepatitis.
[2021-08-06] MEDS: lactulose oral liq 20 gm/30 mL UDC PO (16:47)
[2021-08-06] MEDS: pantoprazole 40 mg SDV IVP (16:47)
[2021-08-06 18:05] LABS: Glucose Point of Care 137 mg/dL (70-110)
[2021-08-06 22:21] LABS: Glucose Point of Care 138 mg/dL (70-110)
[2021-08-06 22:21] LABS: Glucose Point of Care 155 mg/dL (70-110)
[2021-08-07] VITALS (13 sets, daily range): BP systolic 128–145; BP diastolic 82–96; PULSE 63–88; RESP 16–20; TEMP 36.4–36.8; O2SAT 91–96
[2021-08-07] MEDS: morphine 4 mg/mL SDV 1 mL IVP ×3 (00:21→08:24)
[2021-08-07 01:23] LABS: Glucose Point of Care 111 mg/dL (70-110)
[2021-08-07] MEDS: ipratropium-albuterol 3 mL Neb INHALATION ×3 (03:06→14:37)
[2021-08-07] MEDS: HYDROcodone-acetaminophen 5-325 mg Tablet 1 TAB PO (03:10)
[2021-08-07 03:40] LABS: Basophils % 0.4 %; Eosinophils # 0.2 10^3/uL (0.0-0.8); Eosinophils % 2.4 %; Hematocrit 46.6 % (42.0-52.0); Hemoglobin 15.1 g/dL (11.7-16.6); Lymphocytes # 3.3 10^3/uL (0.8-4.8); Lymphocytes % 34.5 %; Mean Corpuscular HGB Conc 32.4 g/dL (30.0-36.0); Mean Corpuscular Hemoglobin 30.9 pg (28.0-34.0); Mean Corpuscular Volume 95.5 fl (80-94); Mean Platelet Volume 11.2 fL (7.4-10.4); Monocytes # 0.6 10^3/uL (0.2-0.9); Monocytes % 6.3 %; Neutrophils % 56.2 %; Nucleated Red Blood Cells % 0 %; Platelet Count 171 10^3/cmm (130-400); Red Blood Count 4.88 10^6/uL (4.1-5.3); Red Cell Distribution Width 12.8 % (12.1-15.1); White Blood Count 9.6 10^3/uL (4.0-10.0)
[2021-08-07 04:01] LABS: Anion Gap 10.3 (5-19); Blood Urea Nitrogen 8 mg/dL (6-20); Calcium 8.5 mg/dL (8.5-10.5); Carbon Dioxide 31 mmol/L (22-29); Chloride 104 mmol/L (98-107); Glomerular Filtration Rate 101.1 mL/min (90-130); Glucose 133 mg/dL (65-115); Osmolality Calculated 292 mOsm/kg (285-295); Potassium 4.3 mmol/L (3.5-5.1); Sodium 141 mmol/L (136-145)
[2021-08-07 07:06] LABS: Glucose Point of Care 100 mg/dL (70-110)
[2021-08-07] MEDS: nicotine 21 mg Patch 1 PATCH TRANSDERMA (08:16)
[2021-08-07] MEDS: pregabalin 100 mg Capsule 200 MG PO (08:17)
[2021-08-07] MEDS: sodium chloride 0.9% 1,000 ML 100 ML IV (08:17)
[2021-08-07] MEDS: lactulose oral liq 20 gm/30 mL UDC PO (10:36)
--- NOTE | 2021-08-07 11:44 | P.DS_ITS ---
Discharge Providers Date of Admission: 08/05/21 14:17 Date of Discharge: August 07, 2021 Attending Provider at Admission: Elvira Sharif MD Attending Provider at Discharge: Elvira Sharif MD Diagnoses at Discharge Discharge Diagnosis (1) Pancreatitis: Status: Resolved (2) S/P appendectomy: Status: Resolved (3) Obesity: Status: Acute (4) COPD (chronic obstructive pulmonary disease): Status: Acute (5) Diabetes mellitus: Status: Acute (6) Hypertension: Status: Acute (7) Nausea & vomiting: Status: Resolved (8) Obstructive sleep apnea: Status: Acute (9) Sleep apnea treated with nocturnal BiPAP: Status: Acute Reason for Visit Reason for Visit: N/V Brief History: as per dr. vivien Wood Azalea is a 55 year old male present to the hospital with chief complaint of abdominal pain and emesis.? Patient is stating that his symptoms started on 08/01 after he ate [employer] hamburger.? In total he has had more than 10 episodes of emesis, he has not noticed any fever, diarrhea.? He has been taking fish oil capsules for his triglycerides.? He is diabetic, uses oxygen 2 to 3 L at home for his COPD.? Active smoker 1 pack/day.? Does not drink alcohol.? Lives with his .? He went to [facility] where CT abdomen pelvis revealed pancreatitis no gallstones or pericholecystic fluid collection.? He came to our hospital for further evaluation. I have requested triglyceride level, he is hypertensive, recheck blood pressure, can give hydralazine if systolic blood pressure higher than 180 and diastolic above 110 mmHg, Hospital Course Hospital Course Patient was admitted for nausea vomiting dehydration most likely secondary to gastroparesis secondary to diabetes versus possible mild pancreatitis. He was kept n.p.o. and given IV fluids to which patient improved. CT abdomen did show distended gallbladder with thin wall and no visible stones. Right upper quadrant ultrasound did not show any gallstones either which showed steatohepatitis. Patient to follow-up with PCP. He was also on Victoza which I believe for nausea vomiting contributed to. advised him to hold it until seen by PCP at discharge. Triglycerides were 156. Patient was on Vascepa at home. He does have obstructive sleep apnea on BiPAP at home but lost his machine. [place] and has recently moved to [place]. We will plan to pulmonology and cardiology at discharge. Also had a remote history of heart failure reduced ejection fraction 45%. Patient will be set up with referrals at discharge and follow-up with his primary care physician at discharge. Day of discharge he states he is feeling really well and ready to go home. He did have constipation. He was given an enema and stool softeners and he was able to have a bowel movement before he left the hospital. All questions answered and concerns addressed. Physical Exam Narrative: General: Alert oriented x3, patient seen sitting up in bed appearing comfortable.? Obese large male. HEENT: Normocephalic, atraumatic, EOMI, breathing normally on nasal cannula no acute respiratory distress. Cardio: Regular rate rhythm, normal S1-S2, no murmurs rubs gallops, JVD unable to be assessed secondary to body habitus.? Muffled heart sounds due to body habitus. Respiratory: Good bilateral air entry, no wheezes no rhonchi appreciated GI: Abdomen soft, nontender, obese large rounded abdomen bowel sounds + Behavior: Appropriate and cooperative Extremities: 1+ generalized edema bilateral lower extremities no cyanosis Discharge Data Studies Completed and Pending Completed Studies During Hospitalization Category Date Time Status CT abdomen pelvis wo con [id number] Stat Cat Scan 08/05/21 09:35 Completed XR chest 1V portable [id number] Stat Exams 08/05/21 09:35 Completed US abdomen limited [id number] Routine Ultrasound 08/06/21 15:09 Completed Radiology Impressions Abdomen/Pelvis CT 08/05/21 09:35 IMPRESSION: 1. Distended gallbladder with a thin wall and no visible stones. If there is clinical evidence of cholecystitis, then ultrasound should be considered. 2. Incidental findings above. Chest X-Ray 08/05/21 09:35 IMPRESSION: 1. No acute findings. 2. Focal opacity in the lateral left lung base suggest subsegmental atelectasis or scarring. Abdomen Ultrasound 08/06/21 15:09 IMPRESSION: 1. Normal gallbladder. 2. Enlarged hyperechoic liver, consistent with steatosis/steatohepatitis. Laboratory Results WBC 9.6 10^3/uL (4.0-10.0) 08/07/21 03:14 RBC 4.88 10^6/uL (4.1-5.3) 08/07/21 03:14 Hgb 15.1 g/dL (11.7-16.6) 08/07/21 03:14 Hct 46.6 % (42.0-52.0) 08/07/21 03:14 MCV 95.5 fl (80-94) H 08/07/21 03:14 MCH 30.9 pg (28.0-34.0) 08/07/21 03:14 MCHC 32.4 g/dL (30.0-36.0) 08/07/21 03:14 RDW 12.8 % (12.1-15.1) 08/07/21 03:14 Plt Count 171 10^3/cmm (130-400) 08/07/21 03:14 MPV 11.2 fL (7.4-10.4) H 08/07/21 03:14 Neut % (Auto) 56.2 % 08/07/21 03:14 Lymph % (Auto) 34.5 % 08/07/21 03:14 Roseau % (Auto) 6.3 % 08/07/21 03:14 Eos % (Auto) 2.4 % 08/07/21 03:14 Baso % (Auto) 0.4 % 08/07/21 03:14 Neut # (Auto) 5.40 10^3/uL (1.8-7.7) 08/07/21 03:14 Lymph # (Auto) 3.3 10^3/uL (0.8-4.8) 08/07/21 03:14 Roseau # (Auto) 0.6 10^3/uL (0.2-0.9) 08/07/21 03:14 Eos # (Auto) 0.2 10^3/uL (0.0-0.8) 08/07/21 03:14 Baso # (Auto) 0.0 10^3/uL (0.0-0.1) 08/07/21 03:14 Nucleated RBC % (auto) 0 % 08/07/21 03:14 Nucleated RBCs # 0.0 /100WBC 08/07/21 03:14 Specimen Type Arterial 08/05/21 08:40 Sample Site Radial, right 08/05/21 08:40 ABG pH 7.40 (7.35-7.45) 08/05/21 08:40 ABG pCO2 54.2 mmHg (35-45) H 08/05/21 08:40 ABG pO2 53.6 mmHg (80.0-100.0) L 08/05/21 08:40 ABG HCO3 33.2 mmol/L (22-26) H 08/05/21 08:40 ABG O2 Saturation 89.1 08/05/21 08:40 ABG Base Excess 6.2 mmol/L (-2.0-2.0) H 08/05/21 08:40 Davi Test Pos 08/05/21 08:40 A-a O2 Gradient 14.1 mmHg (5-10) H 08/05/21 08:40 Hematocrit 55.2 % (42-52) H 08/05/21 08:40 Hgb O2 Saturation 86.3 % (95-100) L 08/05/21 08:40 Carboxyhemoglobin 2.9 %THgb (0.4-20.1) 08/05/21 08:40 Methemoglobin 0.3 % (0.4-1.5) L 08/05/21 08:40 Total Hemoglobin 18.0 g/dL (14-18) 08/05/21 08:40 Sodium 142.0 mmol/L (131-143) 08/05/21 08:40 Potassium 3.9 mmol/L (3.5-5.0) 08/05/21 08:40 Glucose 108.0 mg/dL (70-115) 08/05/21 08:40 Ionized Calcium 1.2 mmol/L (1.1-1.4) 08/05/21 08:40 O2 Delivery Device Nc 08/05/21 08:40 O2 Liters/Min 3.0 % 08/05/21 08:40 FiO2 32.0 % 08/05/21 08:40 Deicer Repairer Pneumatic ID Gd 08/05/21 08:40 Sodium 141 mmol/L (136-145) 08/07/21 03:14 Potassium 4.3 mmol/L (3.5-5.1) 08/07/21 03:14 Chloride 104 mmol/L (98-107) 08/07/21 03:14 Carbon Dioxide 31 mmol/L (22-29) H 08/07/21 03:14 Anion Gap 10.3 (5-19) 08/07/21 03:14 BUN 8 mg/dL (6-20) 08/07/21 03:14 Creatinine 0.8 mg/dL (0.7-1.2) 08/07/21 03:14 GFR Calculation 101.1 mL/min (90-130) 08/07/21 03:14 Glucose 133 mg/dL (65-115) H 08/07/21 03:14 POC Glucose 100 mg/dL (70-110) 08/07/21 06:56 Estimat Average Glucose 174 08/05/21 08:30 Hemoglobin A1c 7.7 % (4.0-6.0) H 08/05/21 08:30 Calculated Osmolality 292 mOsm/kg (285-295) 08/07/21 03:14 Lactic Acid 0.6 mmol/L (0.5-2.2) 08/05/21 18:03 Calcium 8.5 mg/dL (8.5-10.5) 08/07/21 03:14 Phosphorus 4.7 mg/dL (2.5-4.5) H 08/06/21 03:35 Magnesium 2.0 mg/dL (1.7-2.3) 08/07/21 03:14 Total Bilirubin 0.5 mg/dL (0.15-1.2) 08/06/21 03:35 AST 14 U/L (0-40) 08/06/21 03:35 ALT 21 U/L (0-41) 08/06/21 03:35 Alkaline Phosphatase 78 IU/L (40-130) 08/06/21 03:35 Troponin T Baseline 6 ng/L (0-15) 08/05/21 08:30 Troponin T 120 Minute 6.00 ng/L (0-15) 08/05/21 10:58 Delta Troponin T 0 ABS# (0-10) 08/05/21 10:58 Troponin T Hi Sens 6Hr 6.00 ng/L (0-15) 08/05/21 14:53 Troponin T Hi Sens 6Hr Delta 0 ng/L (0-12) 08/05/21 14:53 Total Protein 6.7 g/dL (6.6-8.7) 08/06/21 03:35 Albumin 3.3 g/dL (3.5-5.2) L 08/06/21 03:35 Globulin 3.4 g/dL (1.3-4.6) 08/06/21 03:35 Triglycerides 150 mg/dL (0-150) 08/05/21 18:03 Triglycerides 156 mg/dL (0-150) H 08/05/21 18:03 Cholesterol 112 mg/dL (0-200) 08/05/21 18:03 LDL Cholesterol, Calc 57 mg/dL (50-129) 08/05/21 18:03 Total VLDL Cholesterol 30 mg/dL (0-30) 08/05/21 18:03 HDL Cholesterol 25 mg/dL (60-100) L 08/05/21 18:03 Cholesterol/HDL Ratio 4.48 mg/dL (1.0-5.00) 08/05/21 18:03 Lipase 48 U/L (13-60) 08/06/21 03:35 Procalcitonin 0.11 ng/mL (0-0.5) 08/05/21 14:53 TSH 0.99 uIU/mL (0.27-4.20) 08/05/21 14:53 Urine Color Yellow (Yellow) 08/05/21 08:30 Urine Appearance Clear (CLEAR) 08/05/21 08:30 Urine pH 9 (5-7) H 08/05/21 08:30 Ur Specific Ehrhardt 1.020 (1.005-1.030) 08/05/21 08:30 Urine Protein 1+ (Negative) H 08/05/21 08:30 Urine Glucose (UA) 4+ (Normal) H 08/05/21 08:30 Urine Ketones Negative (Negative) 08/05/21 08:30 Urine Blood Neg (Negative) 08/05/21 08:30 Urine Nitrate Negative (Negative) 08/05/21 08:30 Urine Bilirubin Neg (Negative) 08/05/21 08:30 Prot Sulfosalicylic Acd Positive (Negative) 08/05/21 08:30 Urine Urobilinogen Norm mg/dL (Negative) 08/05/21 08:30 Ur Leukocyte Esterase Negative (Negative) 08/05/21 08:30 Urine RBC None /hpf (0-2) 08/05/21 08:30 Urine WBC Rare /hpf (0-5) 08/05/21 08:30 Ur Squamous Epith Cells None /hpf (0-5) 08/05/21 08:30 Amorphous Sediment Not Reportable 08/05/21 08:30 Urine Bacteria None /hpf (NONE) 08/05/21 08:30 Urine Opiates Screen Positive ng/mL (Negative) H 08/05/21 17:00 Ur Barbiturates Screen Negative ng/mL (Negative) 08/05/21 17:00 Ur Phencyclidine Scrn Negative ng/mL (Negative) 08/05/21 17:00 Ur Amphetamines Screen Negative ng/mL (Negative) 08/05/21 17:00 U Benzodiazepines Scrn Negative ng/mL (Negative) 08/05/21 17:00 Urine Cocaine Screen Negative ng/mL (Negative) 08/05/21 17:00 U Marijuana (THC) Screen Negative ng/mL (Negative) 08/05/21 17:00 Vitals Last Vital Signs Temp 97.6 F 08/07/21 08:00 Pulse 72 08/07/21 08:14 Resp 17 08/07/21 08:24 BP 145/88 08/07/21 08:00 Pulse Ox 94 08/07/21 08:08 Discharge Plan Discharge Patient Disposition: Home Condition: Stable Prescriptions: New Protonix 40 mg tablet,delayed release (DR/EC) 40 mg PO DAILY 28 Days Qty: 30 0RF docusate sodium 100 mg capsule 100 mg PO BID 30 Days Qty: 60 0RF Continued atorvastatin 80 mg tablet 80 mg PO DAILY 0RF carvedilol 12.5 mg tablet 12.5 mg PO BID 0RF aspirin 325 mg Tablet 325 mg PO DAILY 0RF glimepiride 1 mg tablet 1 mg PO BID 0RF metformin 1,000 mg tablet 1,000 mg PO BID 0RF furosemide 20 mg tablet 20 mg PO DAILY 0RF oxycodone-acetaminophen 7.5-325 mg tablet 1 tab PO Q8H PRN (Reason: Pain) 0RF albuterol sulfate 90 mcg/actuation HFA aerosol inhaler 2 puff INHALATION Q8H PRN (Reason: Shortness Of Breath) 0RF fluticasone propionate 50 mcg/actuation spray,suspension 1 spray INTRANASAL BID PRN (Reason: Nasal Congestion) 0RF pregabalin 300 mg capsule 300 mg PO BID 0RF Victoza 3-Joe 0.6 mg/0.1 mL (18 mg/3 mL) pen injector 1.8 mg SUBCUT DAILY 0RF Vascepa 1 gram capsule 2 g PO BID 0RF Jardiance 25 mg tablet 25 mg PO DAILY 0RF naloxone 4 mg/actuation spray,non-aerosol 4 spray INTRANASAL . DIRECTED PRN (Reason: overdose) 0RF Trelegy Ellipta 100-62.5-25 mcg blister with device 1 inh INHALATION DAILY 0RF Discharge Orders: Discharge Order (Routine); Ordered 08/07/21 Ordered By: Elvira Sharif Referrals: Datar,Kenny Pat MD [Physician] - 08/24/21 9:45 am Mohit Ramirez MD [Physician] - 10/03/21 2:15 pm Parisa Saldivar MD [Physician] - 08/14/21 2:40 pm Discharge Diet: GI Soft Discharge Activity: Resume usual activity and Oxygen as instructed Patient Instructions: Laxative, Stool Softeners (By mouth) (Doculax, Colace, Colace Clear, DSS), Pantoprazole (By mouth), Pancreatitis (DC), Opioid Safety Activity Restrictions/Additional Instructions: Please follow up with your primary care doctor in 4-7 days of discharge. Discharge Attestations Time Spent in Discharge Care*: less than 30 min Quality Metrics Clinical Quality Measures [ No reported AMI, CVA or VTE this stay] Coding Level of Care Code Acute Chg FW DC note Diagnoses Pancreatitis K85.90 S/P appendectomy Z90.49 Obesity E66.9 COPD (chronic obstructive pulmonary disease) J44.9 Diabetes mellitus E11.9 Hypertension I10 Nausea & vomiting R11.2 Obstructive sleep apnea G47.33 Sleep apnea treated with nocturnal BiPAP G47.30
[2021-08-07 12:32] LABS: Glucose Point of Care 148 mg/dL (70-110)
[2021-08-07] MEDS: insulin lispro 100 unit/1 mL SUBCUT (13:09)
--- NOTE | 2021-08-07 14:41 | PC.RESP ---
Dr. Sharif was notified at 1440 on august 07 about home oxygen evalution. Pt stated that he has oxygen equipment at home and can change what he wants when he wants. stated that it was fine to not do the eval if patient does have oxygen at home. Pt wears 2LPM NC at home.
== END 2021-08-07 14:54 | disposition home or self-care (01) | DRG 73 ==
LOC: ER 12:36 → MEDSURG 14:38
PROVIDERS: Internal Medicine; Admitting Provider Internal Medicine; Emergency Provider Family Medicine; Visit Provider Internal Medicine
DX: E11.43 Type 2 diabetes mellitus with diabetic autonomic (poly)neuropathy (principal); K85.90 Acute pancreatitis without necrosis or infection, unspecified; I50.22 Chronic systolic (congestive) heart failure; Z68.43 Body mass index [BMI] 50.0-59.9, adult; K31.84 Gastroparesis; Z99.81 Dependence on supplemental oxygen; J44.9 Chronic obstructive pulmonary disease, unspecified; F17.200 Nicotine dependence, unspecified, uncomplicated; I11.0 Hypertensive heart disease with heart failure; E66.9 Obesity, unspecified; G47.33 Obstructive sleep apnea (adult) (pediatric); E78.5 Hyperlipidemia, unspecified; E86.0 Dehydration; K75.81 Nonalcoholic steatohepatitis (NASH); Z79.84 Long term (current) use of oral hypoglycemic drugs; Z79.51 Long term (current) use of inhaled steroids; Z79.899 Other long term (current) drug therapy
CPT/HCPCS: 36415; 36416; 36600; 71045; 74176; 76705; 80048; 80051; 80053; 80061; 80306; 81001; 82330; 82805; 82962; 83036; 83605; 83690; 83735; 84100; 84145; 84443; 84478; 84484; 85025; 93005; 94640; 96361; 96372; 96374; 96375; 96376; 99285; C9113; J1815; J2270; J2405; J7030

== ENCOUNTER → 2021-08-21 10:02 | Outpatient (BNVA) | payer MEDICARE, MEDICAID, SELFPAY | PROVIDERS: PCP Family Medicine; Visit Provider Surgery | DX: R10.13 Epigastric pain (principal) | CPT/HCPCS: 99203 ==

== ENCOUNTER → 2021-10-25 14:00 | Outpatient (BNVA) | payer MEDICARE, MEDICAID, SELFPAY | PROVIDERS: PCP Family Medicine; Visit Provider Family Medicine | DX: M47.816 Spondylosis without myelopathy or radiculopathy, lumbar region (principal); G89.29 Other chronic pain | CPT/HCPCS: 80307 ==

== ENCOUNTER → 2021-12-29 11:55 | Outpatient (BNVA) | payer MEDICARE, MEDICAID, SELFPAY | PROVIDERS: PCP Family Medicine; Visit Provider Family Medicine | DX: E11.9 Type 2 diabetes mellitus without complications (principal); I10 Essential (primary) hypertension | CPT/HCPCS: 80053; 83036; 85025 ==

== ENCOUNTER → 2022-05-10 12:02 | Outpatient (BNVA) | payer MEDICARE, MEDICAID, SELFPAY | PROVIDERS: PCP Family Medicine; Visit Provider Nurse Practitioner Family | DX: I10 Essential (primary) hypertension (principal); G62.9 Polyneuropathy, unspecified; E88.81 Metabolic syndrome and other insulin resistance; E78.5 Hyperlipidemia, unspecified; E11.9 Type 2 diabetes mellitus without complications; E78.2 Mixed hyperlipidemia; E11.621 Type 2 diabetes mellitus with foot ulcer; L97.512 Non-pressure chronic ulcer of other part of right foot with fat layer exposed; B37.0 Candidal stomatitis; K13.79 Other lesions of oral mucosa | CPT/HCPCS: 80053; 80061; 83036 ==

== ENCOUNTER → 2022-05-15 10:44 | Outpatient (BNVA) | payer MEDICARE, MEDICAID, SELFPAY | PROVIDERS: PCP Family Medicine; Visit Provider Otolaryngology | DX: G47.30 Sleep apnea, unspecified (principal); K13.79 Other lesions of oral mucosa; J34.2 Deviated nasal septum; E66.01 Morbid (severe) obesity due to excess calories; Z68.43 Body mass index [BMI] 50.0-59.9, adult | CPT/HCPCS: 99203 ==

== ENCOUNTER → 2022-09-03 11:31 | Outpatient (BNVA) | payer MEDICARE, MEDICAID, SELFPAY | PROVIDERS: PCP Family Medicine; Visit Provider Family Medicine | DX: T63.301A Toxic effect of unspecified spider venom, accidental (unintentional), initial encounter (principal); E11.9 Type 2 diabetes mellitus without complications; I10 Essential (primary) hypertension; E78.5 Hyperlipidemia, unspecified; E11.621 Type 2 diabetes mellitus with foot ulcer; L97.512 Non-pressure chronic ulcer of other part of right foot with fat layer exposed; E78.2 Mixed hyperlipidemia | CPT/HCPCS: 80053; 80061; 83036; 84443; 85025 ==

== ENCOUNTER → 2022-10-03 13:39 | Outpatient (BNVA) | payer MEDICARE, MEDICAID, SELFPAY | PROVIDERS: PCP Family Medicine; Visit Provider Family Medicine | DX: D72.829 Elevated white blood cell count, unspecified (principal) | CPT/HCPCS: 85025 ==

== ENCOUNTER 2022-11-06 09:42 | Emergency (ER) | payer MEDICARE, MEDICAID, SELFPAY ==
--- NOTE | 2022-11-06 09:45 | XRR_ITS ---
PROCEDURE INFORMATION: Exam: XR Chest Exam date and time: 11/06/2022 10:05 AM Age: 56 years old Clinical indication: Cough and dyspnea; Additional info: Dyspnea/cough TECHNIQUE: Imaging protocol: Radiologic exam of the chest. Views: 1 view. COMPARISON: CR XR chest 1V portable [id number] 08/05/2021 9:48 AM FINDINGS: Lungs: Unremarkable. No consolidation. Pleural spaces: Unremarkable. No pleural effusion. No pneumothorax. Heart/Mediastinum: Unremarkable. No cardiomegaly. Bones/joints: Unremarkable for age. XR/XR chest 1V portable [id number] IMPRESSION: Negative chest exam.
[2022-11-06 09:47] VITALS: BP 91/60; PULSE 74; RESP 18; TEMP 36.6; O2SAT 92; BMI 51.3
--- NOTE | 2022-11-06 09:48 | ECG_ITS ---
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 Measurements Intervals [place] Rate: 69 P: 11 FL: 153 QRS: 261 QRSD: 156 T: 2 QT: 442 QTc: 475 Interpretive Statements SINUS RHYTHM WITH FREQUENT VENTRICULAR PREMATURE COMPLEXES RIGHT AXIS DEVIATION [QRS AXIS > 100] RIGHT BUNDLE BRANCH BLOCK [120+ ms QRS DURATION, UPRIGHT V1, 40+ ms S IN I/aVL/V4/V5/V6] POSSIBLE ANTERIOR MYOCARDIAL INFARCTION , OF INDETERMINATE AGE [30 ms Q WAVE IN V3/V4, OR R < 0.2 mV IN V4] No previous ECG available for comparison Electronically Signed On 11-06-2022 12:04:47 CDT by Sami Sol M.D. [id number]
[2022-11-06] MEDS: aspirin 81 mg Chew Tablet 324 MG PO (09:54)
--- NOTE | 2022-11-06 09:54 | W.ED.SOB ---
HPI - SOB/Dyspnea General: Chief Complaint: Shortness of Breath/Dyspnea Stated Complaint: SOB Time Seen by Provider: 11/06/22 09:43 Source: patient Mode of arrival: EMS History of Present Illness: HPI Narrative: 56-year-old male presents emergency room complaining of shortness of breath. He states he has been having difficulty sleeping and feeling really short of breath had a few brief episodes of chest discomfort that resolved spontaneously. He has not had any productive cough he has had some sweats and chills. Patient is not routinely on oxygen. He has have a history of congestive heart failure and obstructive sleep apnea. MD elicited complaint: shortness of breath and cough Pertinent past history: COPD Onset (ago): day(s) Timing: constant Severity: mild Exacerbating factors: exertion and coughing Relieving factors: rest Known history of: COPD Associated symptoms: Reports cough; Deny abdominal pain, chest congestion, chest pain, diaphoresis, dizziness, extremity pain, fever(s), hemoptysis, lightheadedness, myalgias, nausea, orthopnea, palpitations, paresthesias, polydipsia, polyuria, rash, sense of impending doom, syncope or vomiting Treatment prior to arrival: oxygen Review of Systems Const: Reports: fatigue; Denies: fever(s), chills or diaphoresis ENMT: Denies: throat pain, ear or mastoid pain, nasal discharge or nasal congestion Card: Denies: chest pain, palpitations, lightheadedness, syncope or orthopnea Resp: Reports: dyspnea, non-productive cough and wheezing; Denies: hemoptysis or chest congestion GI: Denies: abdominal pain, nausea or vomiting : Denies: flank pain, dysuria, urinary frequency or urinary urgency Musc: Denies: extremity pain Skin/Breast: Denies: rash or pruritus Neuro: Denies: dizziness Endo: Denies: polyuria or polydipsia PFS ED PFSH: Medical History CHF (congestive heart failure) COPD (chronic obstructive pulmonary disease) Diabetes Diabetes mellitus Hyperlipidemia Hypertension Hypertension Metabolic syndrome Neuropathy Obesity HOMER (obstructive sleep apnea) Surgical History S/P appendectomy S/P appendectomy Status post amputation of great toe Family History Mother Diabetes Father Heart disease Other CAD (coronary artery disease) Social History Smoking and tobacco status: current every day smoker cigarettes Packs smoked per day: 1 Years cigarettes smoked: 30 Alcohol intake: never Substance/Drug Use: never Lives independently: Yes Household members: spouse Housing: House Marital status: Physical Exam Const: GENERAL APPEARANCE: cooperative and comfortable ORIENTATION/CONSCIOUSNESS: Yes awake, Yes oriented to person, Yes oriented to place and Yes oriented to time HENMT: COMMON NORMALS: normocephalic, atraumatic and hearing grossly normal bilaterally HEAD & SCALP: normocephalic and atraumatic Resp: COMMON NORMALS: normal respiratory effort, No retractions and No use of accessory muscles AUSCULTATION: rhonchi and wheezes Cardio: COMMON NORMALS: regular rate, regular rhythm and No murmurs present (Cardio) RATE: regular rate RHYTHM: regular rhythm GI: COMMON NORMALS: Soft to palpation and No hepatosplenomegaly present AUSCULTATION: Yes normoactive bowel sounds PALPATION: Yes Soft to palpation, No Tenderness to palpation present (GI), No Guarding due to palpation present (GI) and Yes No hepatosplenomegaly present Extremity: COMMON NORMALS: normal to inspection, capillary refill normal, no clubbing, cyanosis or edema, no calf tenderness and no pedal edema Neuro: SENSORIUM/ORIENTATION: Yes oriented to person, Yes oriented to place and Yes oriented to time Skin: COMMON NORMALS: no rashes or lesions noted GENERAL SKIN EXAM: no rashes or lesions noted Course Vital Signs: Vital signs: Vital Signs Temperature 97.9 F 11/06/22 09:47 Pulse Rate 98 11/06/22 13:10 Respiratory Rate 20 H 11/06/22 13:10 Blood Pressure 122/81 11/06/22 11:17 Pulse Oximetry 91 11/06/22 13:10 Oxygen Delivery Me thod Room Air 11/06/22 13:10 Oxygen Flow Rate 2 11/06/22 09:47 MDM - SOB/Dyspnea Medical Decision Making EKG cardiac enzymes unremarkable. Improvement with nebulizer and steroids patient is anxious to go home. Discharged home on steroids doxycycline albuterol as needed. No focal neurologic deficits are noted. Repeat exam at the time of discharge NIH is 0 Medical Records I reviewed the patient's medical records. Lab Data I reviewed the patient's lab results. 11/06/22 09:55 11/06/22 09:55 Labs/Radiology: Radiology Impressions Chest X-Ray 11/06/22 09:45 IMPRESSION: Negative chest exam. Laboratory Results WBC 12.52 10^3/uL (3.29-11.43) H 11/06/22 09:55 RBC 5.40 10^6/uL (3.85-5.65) 11/06/22 09:55 Hgb 16.90 g/dL (11.27-16.99) 11/06/22 09:55 Hct 50.9 % (37-53) 11/06/22 09:55 MCV 94.3 fl (82-101) 11/06/22 09:55 MCH 31.3 pg (27-33) 11/06/22 09:55 MCHC 33.2 g/dL (30-55) 11/06/22 09:55 RDW 12.9 % (12.1-15.1) 11/06/22 09:55 Plt Count 206 10^3/cmm (157-399) 11/06/22 09:55 MPV 11.5 fL (7.4-10.4) H 11/06/22 09:55 Neut % (Auto) 63.2 % 11/06/22 09:55 Lymph % (Auto) 27.8 % 11/06/22 09:55 [place] % (Auto) 5.9 % 11/06/22 09:55 Eos % (Auto) 2.3 % 11/06/22 09:55 Baso % (Auto) 0.6 % 11/06/22 09:55 Neut # (Auto) 7.91 10^3/uL (1.8-7.7) H 11/06/22 09:55 Lymph # (Auto) 3.5 10^3/uL (0.8-4.8) 11/06/22 09:55 [place] # (Auto) 0.7 10^3/uL (0.2-0.9) 11/06/22 09:55 Eos # (Auto) 0.3 10^3/uL (0.0-0.8) 11/06/22 09:55 Baso # (Auto) 0.1 10^3/uL (0.0-0.1) 11/06/22 09:55 Nucleated RBC % (auto) 0 % 11/06/22 09:55 Nucleated RBCs # 0.0 /100WBC 11/06/22 09:55 Sodium 139 mmol/L (136-145) 11/06/22 09:55 Potassium 4.7 mmol/L (3.5-5.1) 11/06/22 09:55 Chloride 106 mmol/L (98-107) 11/06/22 09:55 Carbon Dioxide 26 mmol/L (22-29) 11/06/22 09:55 Anion Gap 11.7 (5-19) 11/06/22 09:55 BUN 8 mg/dL (6-20) 11/06/22 09:55 Creatinine 0.7 mg/dL (0.7-1.2) 11/06/22 09:55 GFR Calculation 117.5 mL/min (90-130) 11/06/22 09:55 Glucose 247 mg/dL (65-115) H 11/06/22 09:55 Calculated Osmolality 295 mOsm/kg (285-295) 11/06/22 09:55 Calcium 8.6 mg/dL (8.5-10.5) 11/06/22 09:55 Total Bilirubin 0.3 mg/dL (0.15-1.2) 11/06/22 09:55 AST 11 U/L (0-40) 11/06/22 09:55 ALT 21 U/L (0-41) 11/06/22 09:55 Alkaline Phosphatase 90 U/L (40-130) 11/06/22 09:55 Troponin T Baseline 7 ng/L (0-15) 11/06/22 09:55 Troponin T 120 Minute 6.00 ng/L (0-15) 11/06/22 12:13 Delta Troponin T -1.00 ABS# (0-10) L 11/06/22 12:13 Total Protein 6.7 g/dL (6.6-8.7) 11/06/22 09:55 Albumin 3.9 g/dL (3.5-5.2) 11/06/22 09:55 Globulin 2.8 g/dL (1.3-4.6) 11/06/22 09:55 Discharge Plan Discharge Patient Disposition: Home Clinical Impression: Acute exacerbation of chronic obstructive airways disease Condition: Stable Prescriptions: New doxycycline hyclate 100 mg capsule 100 mg PO BID 10 Days Qty: 20 0RF prednisone 20 mg tablet 20 mg PO TID Qty: 15 0RF Rx Instructions: 1 p.o. 3 times daily x3 days, 1 p.o. twice daily x2 days, 1 p.o. daily x2 days albuterol sulfate 90 mcg/actuation HFA aerosol inhaler 2 inh INHALATION Q4H PRN (Reason: shortness of breath or wheezing) Qty: 18 0RF No Action aspirin 325 mg tablet 325 mg PO DAILY diclofenac sodium [Voltaren Arthritis Pain] 1 % gel 2 g topical QID Qty: 100 2RF Rx Instructions: apply to affected area insulin glargine [Lantus Solostar U-100 Insulin] 100 unit/mL (3 mL) insulin pen 15 unit SUBCUT DAILY Qty: 15 3RF pregabalin 300 mg capsule 300 mg PO BID Qty: 60 4RF mupirocin 2 % ointment 1 applic topical TID 14 Days Qty: 22 0RF Rx Instructions: apply to cut on foot fluticasone propionate 50 mcg/actuation spray,suspension See Rx Instructions .ROUTE .COMPLEX Qty: 16 1RF Dose Instruction: instill ONE SPRAY IN EACH NOSTRIL TWICE DAILY Rx Instructions: instill ONE SPRAY IN EACH NOSTRIL TWICE DAILY (DME) pen needle, diabetic [Easy Comfort Pen [place]] 32 gauge x 5/32 needle See Rx Instructions .ROUTE .MEDSUPPLY Qty: 100 4RF Rx Instructions: ONCE DAILY WITH VICTOZA (DME) Bipap with supplies; 22/18 cm with 2 L O2 bled into BiPap See Rx Instructions .Route .MEDSUPPLY Qty: 1 0RF Rx Instructions: As directed albuterol sulfate 90 mcg/actuation HFA aerosol inhaler See Rx Instructions .ROUTE .COMPLEX Qty: 8.5 3RF Dose Instruction: inhale TWO puffs into lungs EVERY 8 HOURS NEEDED FOR shortness of breath OR wheezing Rx Instructions: inhale TWO puffs into lungs EVERY 8 HOURS NEEDED FOR shortness of breath OR wheezing (DME) Blood Glucose Test Strip See Rx Instructions .Route Qty: 250 5RF Rx Instructions: 2 to 3 times daily Victoza 3-Joe 0.6 mg/0.1 mL (18 mg/3 mL) pen injector See Rx Instructions .ROUTE .COMPLEX Qty: 9 1RF Dose Instruction: inject 1.8mg SUBCUTANEOUSLY ONCE DAILY Rx Instructions: inject 1.8mg SUBCUTANEOUSLY ONCE DAILY ergocalciferol (vitamin D2) 1,250 mcg (50,000 unit) capsule See Rx Instructions .ROUTE .COMPLEX Qty: 4 1RF Dose Instruction: TAKE ONE CAPSULE BY MOUTH ONCE a WEEK Rx Instructions: TAKE ONE CAPSULE BY MOUTH ONCE a WEEK ON SATURDAY atorvastatin 80 mg tablet 80 mg PO DAILY carvedilol 12.5 mg tablet 12.5 mg PO BID glimepiride 1 mg tablet 1 mg PO QAM pantoprazole 40 mg tablet,delayed release (DR/EC) 40 mg PO BID metformin 1,000 mg tablet 1,000 mg PO BID furosemide 20 mg tablet 20 mg PO DAILY duloxetine 60 mg capsule,delayed release(DR/EC) 60 mg PO DAILY Vascepa 1 gram capsule 2 g PO BID Jardiance 25 mg tablet 25 mg PO DAILY Trelegy Ellipta 100-62.5-25 mcg blister with device 1 inh inhalation DAILY oxycodone-acetaminophen 10-325 mg tablet 1 tab PO Q6H PRN (Reason: Pain) Discharge Orders: Discharge ED (Routine); Ordered 11/06/22 Ordered By: Kyaw Zhong Referrals: Parisa Saldivar MD [Primary Care Provider] - Discharge Diet: Usual diet Discharge Activity: Resume usual activity Patient Instructions: COPD (Chronic Obstructive Pulmonary Disease) (ED), Opioid Safety, Pain Management Coding Level of Care Code ED Exercise Instruct for Luis Vasquez
[2022-11-06 10:04] LABS: Basophils # 0.1 10^3/uL (0.0-0.1); Basophils % 0.6 %; Eosinophils # 0.3 10^3/uL (0.0-0.8); Eosinophils % 2.3 %; Hematocrit 50.9 % (37-53); Lymphocytes # 3.5 10^3/uL (0.8-4.8); Lymphocytes % 27.8 %; Mean Corpuscular HGB Conc 33.2 g/dL (30-55); Mean Corpuscular Hemoglobin 31.3 pg (27-33); Mean Corpuscular Volume 94.3 fl (82-101); Mean Platelet Volume 11.5 fL (7.4-10.4); Monocytes # 0.7 10^3/uL (0.2-0.9); Monocytes % 5.9 %; Neutrophils # 7.91 10^3/uL (1.8-7.7); Neutrophils % 63.2 %; Nucleated Red Blood Cells % 0 %; Platelet Count 206 10^3/cmm (157-399); Red Cell Distribution Width 12.9 % (12.1-15.1); White Blood Count 12.52 10^3/uL (3.29-11.43)
[2022-11-06 10:23] LABS: Alanine Aminotransferase 21 U/L (0-41); Albumin Level 3.9 g/dL (3.5-5.2); Alkaline Phosphatase 90 U/L (40-130); Anion Gap 11.7 (5-19); Aspartate Amino Transferase 11 U/L (0-40); Blood Urea Nitrogen 8 mg/dL (6-20); Calcium 8.6 mg/dL (8.5-10.5); Carbon Dioxide 26 mmol/L (22-29); Chloride 106 mmol/L (98-107); Globulin 2.8 g/dL (1.3-4.6); Glomerular Filtration Rate 117.5 mL/min (90-130); Glucose 247 mg/dL (65-115); Osmolality Calculated 295 mOsm/kg (285-295); Potassium 4.7 mmol/L (3.5-5.1); Sodium 139 mmol/L (136-145); Total Bilirubin 0.3 mg/dL (0.15-1.2); Total Protein 6.7 g/dL (6.6-8.7)
[2022-11-06 10:32] LABS: Troponin(5th) Baseline 7 ng/L (0-15)
[2022-11-06 11:17] VITALS: BP 122/81; PULSE 104; RESP 17; O2SAT 93
--- NOTE | 2022-11-06 11:48 | ECG_ITS ---
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 Measurements Intervals [place] Rate: 58 P: 29 NV: 155 QRS: 262 QRSD: 166 T: 4 QT: 471 QTc: 465 Interpretive Statements SINUS BRADYCARDIA WITH OCCASIONAL VENTRICULAR PREMATURE COMPLEXES RIGHT AXIS DEVIATION [QRS AXIS > 100] RIGHT BUNDLE BRANCH BLOCK [120+ ms QRS DURATION, UPRIGHT V1, 40+ ms S IN I/aVL/V4/V5/V6] POSSIBLE ANTERIOR MYOCARDIAL INFARCTION , OF INDETERMINATE AGE [30 ms Q WAVE IN V3/V4, OR R < 0.2 mV IN V4] INFERIOR MYOCARDIAL INFARCTION , PROBABLY OLD [40+ ms Q WAVE AND/OR ST/T ABNORMALITY IN II/aVF] Compared to ECG 11/06/2022 09:48:42 Sinus rhythm no longer present Myocardial infarct finding still present Electronically Signed On 11-06-2022 12:06:01 CDT by Sami Sol M.D. [id number]
[2022-11-06 12:04] VITALS: RESP 17; O2SAT 95
[2022-11-06] MEDS: oxyCODONE-APAP 10-325 mg Tablet 1 TAB PO (12:04)
[2022-11-06] MEDS: ipratropium-albuterol 3 mL Neb INHALATION (13:08)
[2022-11-06 13:10] VITALS: PULSE 98; RESP 20; O2SAT 91
[2022-11-06] MEDS: dexamethasone 10 mg/mL INJ IVP (13:14)
== END 2022-11-06 13:50 | disposition home or self-care (01) ==
PROVIDERS: Emergency Provider Family Medicine; PCP Family Medicine
DX: J44.1 Chronic obstructive pulmonary disease with (acute) exacerbation (principal); Z79.82 Long term (current) use of aspirin; Z79.4 Long term (current) use of insulin; Z79.84 Long term (current) use of oral hypoglycemic drugs; I11.0 Hypertensive heart disease with heart failure; I50.9 Heart failure, unspecified; E11.9 Type 2 diabetes mellitus without complications; E78.5 Hyperlipidemia, unspecified; F17.210 Nicotine dependence, cigarettes, uncomplicated
CPT/HCPCS: 36415; 71045; 80053; 84484; 85025; 93005; 94640; 96374; 99285; J1100

== ENCOUNTER 2022-12-13 15:45 | Emergency (ER) | payer MEDICARE, MEDICAID, SELFPAY ==
[2022-12-13] VITALS (11 sets, daily range): BP systolic 110–150; BP diastolic 78–104; PULSE 60–84; RESP 16–83; TEMP 36.6; O2SAT 89–95; BMI 50.3
--- NOTE | 2022-12-13 16:00 | ECG_ITS ---
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 Measurements Intervals [place] Rate: 83 P: 28 HI: 177 QRS: 248 QRSD: 157 T: 10 QT: 414 QTc: 487 Interpretive Statements SINUS RHYTHM RIGHT AXIS DEVIATION [QRS AXIS > 100] RIGHT BUNDLE BRANCH BLOCK [120+ ms QRS DURATION, UPRIGHT V1, 40+ ms S IN I/aVL/V4/V5/V6] POSSIBLE ANTERIOR MYOCARDIAL INFARCTION , OF INDETERMINATE AGE [30 ms Q WAVE IN V3/V4, OR R < 0.2 mV IN V4] Compared to ECG 11/06/2022 11:36:37 Sinus bradycardia no longer present Ventricular premature complex(es) no longer present Myocardial infarct finding still present Electronically Signed On 12-13-2022 21:34:17 CDT by Mohit Ramirez M.D. [id number]
--- NOTE | 2022-12-13 16:39 | XRR_ITS ---
PROCEDURE INFORMATION: Exam: XR Chest Exam date and time: 12/13/2022 5:29 PM Age: 56 years old Clinical indication: Pain and condition or disease; Lung condition and disease; Shortness of breath and other: Chest pain; Other: U/n; Patient HX: Chest pain mid center, copd TECHNIQUE: Imaging protocol: Radiologic exam of the chest. Views: 1 view. COMPARISON: CR XR chest 1V portable [id number] 11/06/2022 10:05 AM FINDINGS: Lungs: Unremarkable. No consolidation. Pleural spaces: Unremarkable. No pleural effusion. No pneumothorax. Heart/Mediastinum: Unremarkable. No cardiomegaly. Bones/joints: Unremarkable. XR/XR chest 1V portable [id number] IMPRESSION: No acute findings.
--- NOTE | 2022-12-13 17:26 | ED_ITS ---
Documented by User: Kyaw Zhong DO 12/14/22 06:19 HPI - Chest Pain General: Chief Complaint: Chest Pain Stated Complaint: chest pains Time Seen by Provider: 12/13/22 17:25 Source: patient Mode of arrival: ambulatory History of Present Illness: 56-year-old male with a history of congestive heart failure presents to the emergency room with complaints of shortness of breath and mild vague chest discomfort intermittently the last couple of days. He was seeing his primary care doctor today and had an EKG and was advised to go to the emergency room he has no chest discomfort at this time he does feel bloated he has chronic swelling in his lower extremities which she feels is about at his normal baseline. He is on 2 L by nasal cannula which is also chronic for him although he admits that he does not always use this. He has severe sleep apnea and usually does use a CPAP as well. Denies any fever sweats or chills no abdominal pain. MD complaint: chest pain Onset (ago): day(s) Timing of current episode: episodic Prior episodes: Yes Onset: during rest Pain location: substernal Quality: aching and heaviness Relieving factors: nothing Exacerbating factors: nothing Associated symptoms: Reports leg edema and nausea; Deny abdominal pain, diaphoresis, dyspnea, fever(s), palpitations, sense of impending doom, syncope or vomiting Treatment prior to arrival: none Review of Systems Const: Denies: fever(s), chills or diaphoresis Card: Denies: chest pain, palpitations or syncope Resp: Denies: dyspnea GI: Reports: nausea; Denies: abdominal pain or vomiting : Denies: dysuria, urinary frequency or urinary urgency Musc: Denies: neck pain or back pain Skin/Breast: Denies: rash PFSH ED PFSH: Medical History CHF (congestive heart failure) COPD (chronic obstructive pulmonary disease) Diabetes Diabetes mellitus Hyperlipidemia Hypertension Hypertension Metabolic syndrome Neuropathy Obesity HOMER (obstructive sleep apnea) Surgical History S/P appendectomy S/P appendectomy Status post amputation of great toe Family History Mother Diabetes Father Heart disease Other CAD (coronary artery disease) Social History Smoking and tobacco/nicotine status: current every day tobacco/nicotine user cigarettes Packs smoked per day: 1 Years cigarettes smoked: 30 Alcohol intake: never Substance/Drug Use: never Lives independently: Yes Household members: spouse Housing: House Marital status: Physical Exam Const: GENERAL APPEARANCE: cooperative and comfortable ORIENTATION/CONSCIOUSNESS: Yes awake, Yes oriented to person, Yes oriented to place and Yes oriented to time HENMT: COMMON NORMALS: normocephalic, atraumatic and hearing grossly normal bilaterally HEAD & SCALP: normocephalic and atraumatic Resp: COMMON NORMALS: normal respiratory effort, No retractions and No use of accessory muscles AUSCULTATION: crackles Cardio: COMMON NORMALS: regular rate, regular rhythm and No murmurs present (Cardio) RATE: regular rate RHYTHM: regular rhythm GI: COMMON NORMALS: Soft to palpation and No hepatosplenomegaly present AUSCULTATION: Yes normoactive bowel sounds PALPATION: Yes Soft to palpation, No Tenderness to palpation present (GI), No Guarding due to palpation present (GI) and Yes No hepatosplenomegaly present Extremity: COMMON NORMALS: normal to inspection, capillary refill normal, no clubbing, cyanosis or edema, no calf tenderness and no pedal edema Neuro: SENSORIUM/ORIENTATION: Yes oriented to person, Yes oriented to place and Yes oriented to time Skin: COMMON NORMALS: no rashes or lesions noted GENERAL SKIN EXAM: no rashes or lesions noted Course Vital Signs: Vital signs: Vital Signs Temperature 97.9 F 12/13/22 16:06 Pulse Rate 65 12/13/22 22:47 Respiratory Rate 20 H 12/13/22 21:01 Blood Pressure 127/91 12/13/22 22:47 Pulse Oximetry 94 12/13/22 22:47 Oxygen Delivery Me thod Nasal Cannula 12/13/22 22:30 Oxygen Flow Rate 3.5 12/13/22 22:30 MDM - Chest Pain Medical Decision Making Care signed out to Dr. Jacques at change of shift. See final notes for diagnosis and disposition. presents to the ER with complaints of chest pain. Patient was worked up in normal cardiac fashion. This included serial EKGs labs chest x-ray. Patient also received a CTA secondary to his hypoxia. Patient was then weaned down on oxygen back to his normal baseline of 2 L and His sat up upwards of 92%. This is felt not to be cardiac in nature. Patient will be discharged back to follow- up with his PCP on an outpatient basis and possible referral to cardiology an d/or stress test. Lab Data 12/13/22 17:03 12/13/22 17:03 Radiology Impressions Chest X-Ray 12/13/22 16:39 IMPRESSION: No acute findings. Chest CTA 12/13/22 19:29 IMPRESSION: 1. No pulmonary embolus. 2. No focal consolidation. Laboratory Results WBC 12.05 10^3/uL (3.29-11.43) H 12/13/22 17:03 RBC 5.47 10^6/uL (3.85-5.65) 12/13/22 17:03 Hgb 17.10 g/dL (11.27-16.99) H 12/13/22 17:03 Hct 52.5 % (37-53) 12/13/22 17:03 MCV 96.0 fl (82-101) 12/13/22 17:03 MCH 31.3 pg (27-33) 12/13/22 17: MCHC 32.6 g/dL (30-55) 12/13/22 17:03 RDW 13.2 % (12.1-15.1) 12/13/22 17:03 Plt Count 243 10^3/cmm (157-399) 12/13/22 17:03 MPV 11.2 fL (7.4-10.4) H 12/13/22 17:03 Neut % (Auto) 64.8 % 12/13/22 17:03 Lymph % (Auto) 27.6 % 12/13/22 17:03 [place] % (Auto) 4.9 % 12/13/22 17:03 Eos % (Auto) 2.0 % 12/13/22 17:03 Baso % (Auto) 0.5 % 12/13/22 17:03 Neut # (Auto) 7.81 10^3/uL (1.8-7.7) H 12/13/22 17:03 Lymph # (Auto) 3.3 10^3/uL (0.8-4.8) 12/13/22 17:03 [place] # (Auto) 0.6 10^3/uL (0.2-0.9) 12/13/22 17:03 Eos # (Auto) 0.2 10^3/uL (0.0-0.8) 12/13/22 17:03 Baso # (Auto) 0.1 10^3/uL (0.0-0.1) 12/13/22 17:03 Nucleated RBC % (auto) 0 % 12/13/22 17:03 Nucleated RBCs # 0.0 /100WBC 12/13/22 17:03 D-Dimer 0.37 ug/mLFEU (0-0.59) 12/13/22 17:03 Specimen Type Arterial 12/13/22 19:50 Sample Site Brachial, right 12/13/22 19:50 ABG pH 7.37 (7.35-7.45) 12/13/22 19:50 ABG pCO2 55.5 mmHg (35-45) H 12/13/22 19:50 ABG pO2 83.0 mmHg (80.0-100.0) 12/13/22 19:50 ABG HCO3 31.8 mmol/L (22-26) H 12/13/22 19:50 ABG O2 Saturation 97.7 12/13/22 19:50 ABG Base Excess 4.5 mmol/L (-2.0-2.0) H 12/13/22 19:50 Davi Test N/a 12/13/22 19:50 A-a O2 Gradient 40.1 mmHg (5-10) H 12/13/22 19:50 Hematocrit 53.0 % (42-52) H 12/13/22 19:50 Hgb O2 Saturation 92.8 % (95-100) L 12/13/22 19:50 Carboxyhemoglobin 5.4 %THgb (0.4-20.1) 12/13/22 19:50 Methemoglobin < 0.0 % (0.4-1.5) L 12/13/22 19:50 Total Hemoglobin 17.3 g/dL (14-18) 12/13/22 19:50 Sodium 141.0 mmol/L (131-143) 12/13/22 19:50 Potassium 3.6 mmol/L (3.5-5.0) 12/13/22 19:50 Glucose 121.0 mg/dL (70-115) H 12/13/22 19:50 Ionized Calcium 1.1 mmol/L (1.1-1.4) 12/13/22 19:50 O2 Delivery Device Nc 12/13/22 19:50 O2 Liters/Min 9.0 % 12/13/22 19:50 FiO2 65.0 % 12/13/22 19:50 Medium Cycle Salesperson ID Alewe 12/13/22 19:50 Sodium 138 mmol/L (136-145) 12/13/22 17:03 Potassium 4.3 mmol/L (3.5-5.1) 12/13/22 17:03 Chloride 100 mmol/L (98-107) 12/13/22 17:03 Carbon Dioxide 28 mmol/L (22-29) 12/13/22 17:03 Anion Gap 14.3 (5-19) 12/13/22 17:03 BUN 12 mg/dL (6-20) 12/13/22 17:03 Creatinine 0.9 mg/dL (0.7-1.2) 12/13/22 17:03 GFR Calculation 87.9 mL/min (90-130) L 12/13/22 17:03 Glucose 211 mg/dL (65-115) H 12/13/22 17:03 Calculated Osmolality 292 mOsm/kg (285-295) 12/13/22 17:03 Calcium 8.3 mg/dL (8.5-10.5) L 12/13/22 17:03 Total Bilirubin 0.4 mg/dL (0.15-1.2) 12/13/22 17:03 AST 16 U/L (0-40) 12/13/22 17:03 ALT 26 U/L (0-41) 12/13/22 17:03 Alkaline Phosphatase 86 U/L (40-130) 12/13/22 17:03 Troponin T Baseline 7 ng/L (0-15) 12/13/22 17:03 Troponin T 120 Minute 6.53 ng/L (0-15) 12/13/22 19:26 Delta Troponin T -0.47 ABS# (0-10) L 12/13/22 19:26 NT-Pro-B Natriuret Pep 72 pg/mL (0-125) 12/13/22 18:18 Total Protein 6.7 g/dL (6.6-8.7) 12/13/22 17:03 Albumin 3.8 g/dL (3.5-5.2) 12/13/22 17:03 Globulin 2.9 g/dL (1.3-4.6) 12/13/22 17:03 Discharge Plan Discharge Patient Disposition: Home Clinical Impression: Chest pain, non-cardiac Condition: Stable Prescriptions: No Action aspirin 325 mg tablet 325 mg PO DAILY diclofenac sodium [Voltaren Arthritis Pain] 1 % gel 2 g topical QID Qty: 100 2RF Rx Instructions: apply to affected area insulin glargine [Lantus Solostar U-100 Insulin] 100 unit/mL (3 mL) insulin pen 15 unit SUBCUT DAILY Qty: 15 3RF pregabalin 300 mg capsule 300 mg PO BID Qty: 60 4RF mupirocin 2 % ointment 1 applic topical TID 14 Days Qty: 22 0RF Rx Instructions: apply to cut on foot nystatin 100,000 unit/mL suspension 5 ml PO QID 7 Days Qty: 140 0RF Rx Instructions: swish and swallow (DME) pen needle, diabetic [Easy Comfort Pen [place]] 32 gauge x 5/32 needle See Rx Instructions .ROUTE .MEDSUPPLY Qty: 100 4RF Rx Instructions: ONCE DAILY WITH VICTOZA (DME) Bipap with supplies; 22/18 cm with 2 L O2 bled into BiPap See Rx Instructions .Route .MEDSUPPLY Qty: 1 0RF Rx Instructions: As directed albuterol sulfate 90 mcg/actuation HFA aerosol inhaler See Rx Instructions .ROUTE .COMPLEX Qty: 8.5 3RF Dose Instruction: inhale TWO puffs into lungs EVERY 8 HOURS NEEDED FOR shortness of breath OR wheezing Rx Instructions: inhale TWO puffs into lungs EVERY 8 HOURS NEEDED FOR shortness of breath OR wheezing (DME) Blood Glucose Test Strip See Rx Instructions .Route Qty: 250 5RF Rx Instructions: 2 to 3 times daily Victoza 3-Joe 0.6 mg/0.1 mL (18 mg/3 mL) pen injector See Rx Instructions .ROUTE .COMPLEX Qty: 9 1RF Dose Instruction: inject 1.8mg SUBCUTANEOUSLY ONCE DAILY Rx Instructions: inject 1.8mg SUBCUTANEOUSLY ONCE DAILY ergocalciferol (vitamin D2) 1,250 mcg (50,000 unit) capsule See Rx Instructions .ROUTE .COMPLEX Qty: 4 1RF Dose Instruction: TAKE ONE CAPSULE BY MOUTH ONCE a WEEK Rx Instructions: TAKE ONE CAPSULE BY MOUTH ONCE a WEEK ON SATURDAY fluticasone propionate 50 mcg/actuation spray,suspension See Rx Instructions .ROUTE .COMPLEX Qty: 16 1RF Dose Instruction: instill one SPRAY into each nostril TWICE DAILY Rx Instructions: instill one SPRAY into each nostril TWICE DAILY Trelegy Ellipta 100-62.5-25 mcg blister with device See Rx Instructions .ROUTE .COMPLEX Qty: 60 5RF Dose Instruction: inhale ONE PUFF BY MOUTH DAILY Rx Instructions: inhale ONE PUFF BY MOUTH DAILY atorvastatin 80 mg tablet 80 mg PO DAILY carvedilol 12.5 mg tablet 12.5 mg PO BID glimepiride 1 mg tablet 1 mg PO QAM pantoprazole 40 mg tablet,delayed release (DR/EC) 40 mg PO BID metformin 1,000 mg tablet 1,000 mg PO BID furosemide 20 mg tablet 20 mg PO DAILY duloxetine 60 mg capsule,delayed release(DR/EC) 60 mg PO DAILY Vascepa 1 gram capsule 2 g PO BID Jardiance 25 mg tablet 25 mg PO DAILY oxycodone-acetaminophen 10-325 mg tablet 1 tab PO Q6H PRN (Reason: Pain) prednisone 20 mg tablet 20 mg PO TID Qty: 15 0RF Rx Instructions: 1 p.o. 3 times daily x3 days, 1 p.o. twice daily x2 days, 1 p.o. daily x2 days albuterol sulfate 90 mcg/actuation HFA aerosol inhaler 2 inh INHALATION Q4H PRN (Reason: shortness of breath or wheezing) Qty: 18 0RF Discharge Orders: Discharge ED (Routine); Ordered 12/13/22 Ordered By: Han Jacques Referrals: Parisa Saldivar MD [Primary Care Provider] - 7-10 days Patient Instructions: Chest Pain - Noncardiac Activity Restrictions/Additional Instructions: please return to your primary care physician within the next 7 days or sooner for further evaluation and treatment. A referral to a manufacturing engineer chief and/or a stress test may be warranted depending upon their Suggestion. Coding Level of Care Code ED Manufacturing [employer] for Chg Fwd Documented by User: Han Jacques DO 12/13/22 22:24 HPI - Chest Pain General: Chief Complaint: Chest Pain Stated Complaint: chest pains Time Seen by Provider: 12/13/22 17:25 PFSH ED PFSH: Medical History CHF (congestive heart failure) COPD (chronic obstructive pulmonary disease) Diabetes Diabetes mellitus Hyperlipidemia Hypertension Hypertension Metabolic syndrome Neuropathy Obesity HOMER (obstructive sleep apnea) Surgical History S/P appendectomy S/P appendectomy Status post amputation of great toe Family History Mother Diabetes Father Heart disease Other CAD (coronary artery disease) Social History Smoking and tobacco/nicotine status: current every day tobacco/nicotine user cigarettes Packs smoked per day: 1 Years cigarettes smoked: 30 Alcohol intake: never Substance/Drug Use: never Lives independently: Yes Household members: spouse Housing: House Marital status: Course Vital Signs: Vital signs: Vital Signs Temperature 97.9 F 12/13/22 16:06 Pulse Rate 65 12/13/22 22:47 Respiratory Rate 20 H 12/13/22 21:01 Blood Pressure 127/91 12/13/22 22:47 Pulse Oximetry 94 12/13/22 22:47 Oxygen Delivery Me thod Nasal Cannula 12/13/22 22:30 Oxygen Flow Rate 3.5 12/13/22 22:30 MDM - Chest Pain Medical Decision Making presents to the ER with complaints of chest pain. Patient was worked up in normal cardiac fashion. This included serial EKGs labs chest x-ray. Patient also received a CTA secondary to his hypoxia. Patient was then weaned down on oxygen back to his normal baseline of 2 L and His sat up upwards of 92%. This is felt not to be cardiac in nature. Patient will be discharged back to follow- up with his PCP on an outpatient basis and possible referral to cardiology and/or stress test. Differential Diagnosis Unlikely acute massive pulmonary embolism, acute respiratory failure, acute myocardial infarction, cardiac arrest or sudden cardiac Medical Records I reviewed the patient's medical records. Lab Data I reviewed the patient's lab results. 12/13/22 17:03 12/13/22 17:03 Radiology Impressions Chest X-Ray 12/13/22 16:39 IMPRESSION: No acute findings. Chest CTA 12/13/22 19:29 IMPRESSION: 1. No pulmonary embolus. 2. No focal consolidation. Laboratory Results WBC 12.05 10^3/uL (3.29-11.43) H 12/13/22 17:03 RBC 5.47 10^6/uL (3.85-5.65) 12/13/22 17:03 Hgb 17.10 g/dL (11.27-16.99) H 12/13/22 17:03 Hct 52.5 % (37-53) 12/13/22 17:03 MCV 96.0 fl (82-101) 12/13/22 17:03 MCH 31.3 pg (27-33) 12/13/22 17:03 MCHC 32.6 g/dL (30-55) 12/13/22 17:03 RDW 13.2 % (12.1-15.1) 12/13/22 17:03 Plt Count 243 10^3/cmm (157-399) 12/13/22 17:03 MPV 11.2 fL (7.4-10.4) H 12/13/22 17:03 Neut % (Auto) 64.8 % 12/13/22 17:03 Lymph % (Auto) 27.6 % 12/13/22 17:03 [place] % (Auto) 4.9 % 12/13/22 17:03 Eos % (Auto) 2.0 % 12/13/22 17:03 Baso % (Auto) 0.5 % 12/13/22 17:03 Neut # (Auto) 7.81 10^3/uL (1.8-7.7) H 12/13/22 17:03 Lymph # (Auto) 3.3 10^3/uL (0.8-4.8) 12/13/22 17:03 [place] # (Auto) 0.6 10^3/uL (0.2-0.9) 12/13/22 17:03 Eos # (Auto) 0.2 10^3/uL (0.0-0.8) 12/13/22 17:03 Baso # (Auto) 0.1 10^3/uL (0.0-0.1) 12/13/22 17:03 Nucleated RBC % (auto) 0 % 12/13/22 17:03 Nucleated RBCs # 0.0 /100WBC 12/13/22 17:03 D-Dimer 0.37 ug/mLFEU (0-0.59) 12/13/22 17:03 Specimen Type Arterial 12/13/22 19:50 Sample Site Brachial, right 12/13/22 19:50 ABG pH 7.37 (7.35-7.45) 12/13/22 19:50 ABG pCO2 55.5 mmHg (35-45) H 12/13/22 19:50 ABG pO2 83.0 mmHg (80.0-100.0) 12/13/22 19:50 ABG HCO3 31.8 mmol/L (22-26) H 12/13/22 19:50 ABG O2 Saturation 97.7 12/13/22 19:50 ABG Base Excess 4.5 mmol/L (-2.0-2.0) H 12/13/22 19:50 Davi Test N/a 12/13/22 19:50 A-a O2 Gradient 40.1 mmHg (5-10) H 12/13/22 19:50 Hematocrit 53.0 % (42-52) H 12/13/22 19:50 Hgb O2 Saturation 92.8 % (95-100) L 12/13/22 19:50 Carboxyhemoglobin 5.4 %THgb (0.4-20.1) 12/13/22 19:50 Methemoglobin < 0.0 % (0.4-1.5) L 12/13/22 19:50 Total Hemoglobin 17.3 g/dL (14-18) 12/13/22 19:50 Sodium 141.0 mmol/L (131-143) 12/13/22 19:50 Potassium 3.6 mmol/L (3.5-5.0) 12/13/22 19:50 Glucose 121.0 mg/dL (70-115) H 12/13/22 19:50 Ionized Calcium 1.1 mmol/L (1.1-1.4) 12/13/22 19:50 O2 Delivery Device Nc 12/13/22 19:50 O2 Liters/Min 9.0 % 12/13/22 19:50 FiO2 65.0 % 12/13/22 19:50 Medium Cycle Salesperson ID Alewe 12/13/22 19:50 Sodium 138 mmol/L (136-145) 12/13/22 17:03 Potassium 4.3 mmol/L (3.5-5.1) 12/13/22 17:03 Chloride 100 mmol/L (98-107) 12/13/22 17:03 Carbon Dioxide 28 mmol/L (22-29) 12/13/22 17:03 Anion Gap 14.3 (5-19) 12/13/22 17:03 BUN 12 mg/dL (6-20) 12/13/22 17:03 Creatinine 0.9 mg/dL (0.7-1.2) 12/13/22 17:03 GFR Calculation 87.9 mL/min (90-130) L 12/13/22 17:03 Glucose 211 mg/dL (65-115) H 12/13/22 17:03 Calculated Osmolality 292 mOsm/kg (285-295) 12/13/22 17:03 Calcium 8.3 mg/dL (8.5-10.5) L 12/13/22 17:03 Total Bilirubin 0.4 mg/dL (0.15-1.2) 12/13/22 17:03 AST 16 U/L (0-40) 12/13/22 17:03 ALT 26 U/L (0-41) 12/13/22 17:03 Alkaline Phosphatase 86 U/L (40-130) 12/13/22 17:03 Troponin T Baseline 7 ng/L (0-15) 12/13/22 17:03 Troponin T 120 Minute 6.53 ng/L (0-15) 12/13/22 19:26 Delta Troponin T -0.47 ABS# (0-10) L 12/13/22 19:26 NT-Pro-B Natriuret Pep 72 pg/mL (0-125) 12/13/22 18:18 Total Protein 6.7 g/dL (6.6-8.7) 12/13/22 17:03 Albumin 3.8 g/dL (3.5-5.2) 12/13/22 17:03 Globulin 2.9 g/dL (1.3-4.6) 12/13/22 17:03 All radiology interpretation(s) finalized by discharge EKG Data EKG 1: I personally reviewed and interpreted this EKG as follows: EKG interpretation date: 12/13/22 EKG interpretation time: 16:05 Prior EKG tracings: not available for review Interpretation: EKG shows ventricular rate 83 beats minute, [place] interval 177, QRS duration 157, QTc of 453, sinus rhythm, right axis deviation, right bundle branch block, EKG 2: I personally reviewed and interpreted this EKG as follows: EKG interpretation date: 12/13/22 EKG interpretation time: 18:48 Prior EKG tracings: available for review Interpretation: EKG showed ventricular rate 79 beats minute, [place] interval 179, QRS duration 165, QTc of 459, sinus rhythm, right axis deviation, right bundle branch block, Discharge Plan Discharge Patient Disposition: Home Clinical Impression: Chest pain, non-cardiac Condition: Stable Prescriptions: No Action aspirin 325 mg tablet 325 mg PO DAILY diclofenac sodium [Voltaren Arthritis Pain] 1 % gel 2 g topical QID Qty: 100 2RF Rx Instructions: apply to affected area insulin glargine [Lantus Solostar U-100 Insulin] 100 unit/mL (3 mL) insulin pen 15 unit SUBCUT DAILY Qty: 15 3RF pregabalin 300 mg capsule 300 mg PO BID Qty: 60 4RF mupirocin 2 % ointment 1 applic topical TID 14 Days Qty: 22 0RF Rx Instructions: apply to cut on foot nystatin 100,000 unit/mL suspension 5 ml PO QID 7 Days Qty: 140 0RF Rx Instructions: swish and swallow (DME) pen needle, diabetic [Easy Comfort Pen [place]] 32 gauge x 5/32 needle See Rx Instructions .ROUTE .MEDSUPPLY Qty: 100 4RF Rx Instructions: ONCE DAILY WITH VICTOZA (DME) Bipap with supplies; 22/18 cm with 2 L O2 bled into BiPap See Rx Instructions .Route .MEDSUPPLY Qty: 1 0RF Rx Instructions: As directed albuterol sulfate 90 mcg/actuation HFA aerosol inhaler See Rx Instructions .ROUTE .COMPLEX Qty: 8.5 3RF Dose Instruction: inhale TWO puffs into lungs EVERY 8 HOURS NEEDED FOR shortness of breath OR wheezing Rx Instructions: inhale TWO puffs into lungs EVERY 8 HOURS NEEDED FOR shortness of breath OR wheezing (DME) Blood Glucose Test Strip See Rx Instructions .Route Qty: 250 5RF Rx Instructions: 2 to 3 times daily Victoza 3-Joe 0.6 mg/0.1 mL (18 mg/3 mL) pen injector See Rx Instructions .ROUTE .COMPLEX Qty: 9 1RF Dose Instruction: inject 1.8mg SUBCUTANEOUSLY ONCE DAILY Rx Instructions: inject 1.8mg SUBCUTANEOUSLY ONCE DAILY ergocalciferol (vitamin D2) 1,250 mcg (50,000 unit) capsule See Rx Instructions .ROUTE .COMPLEX Qty: 4 1RF Dose Instruction: TAKE ONE CAPSULE BY MOUTH ONCE a WEEK Rx Instructions: TAKE ONE CAPSULE BY MOUTH ONCE a WEEK ON SATURDAY fluticasone propionate 50 mcg/actuation spray,suspension See Rx Instructions .ROUTE .COMPLEX Qty: 16 1RF Dose Instruction: instill one SPRAY into each nostril TWICE DAILY Rx Instructions: instill one SPRAY into each nostril TWICE DAILY Trelegy Ellipta 100-62.5-25 mcg blister with device See Rx Instructions .ROUTE .COMPLEX Qty: 60 5RF Dose Instruction: inhale ONE PUFF BY MOUTH DAILY Rx Instructions: inhale ONE PUFF BY MOUTH DAILY atorvastatin 80 mg tablet 80 mg PO DAILY carvedilol 12.5 mg tablet 12.5 mg PO BID glimepiride 1 mg tablet 1 mg PO QAM pantoprazole 40 mg tablet,delayed release (DR/EC) 40 mg PO BID metformin 1,000 mg tablet 1,000 mg PO BID furosemide 20 mg tablet 20 mg PO DAILY duloxetine 60 mg capsule,delayed release(DR/EC) 60 mg PO DAILY Vascepa 1 gram capsule 2 g PO BID Jardiance 25 mg tablet 25 mg PO DAILY oxycodone-acetaminophen 10-325 mg tablet 1 tab PO Q6H PRN (Reason: Pain) prednisone 20 mg tablet 20 mg PO TID Qty: 15 0RF Rx Instructions: 1 p.o. 3 times daily x3 days, 1 p.o. twice daily x2 days, 1 p.o. daily x2 days albuterol sulfate 90 mcg/actuation HFA aerosol inhaler 2 inh INHALATION Q4H PRN (Reason: shortness of breath or wheezing) Qty: 18 0RF Discharge Orders: Discharge ED (Routine); Ordered 12/13/22 Ordered By: Han Jacques Referrals: Parisa Saldivar MD [Primary Care Provider] - 7-10 days Patient Instructions: Chest Pain - Noncardiac Activity Restrictions/Additional Instructions: please return to your primary care physician within the next 7 days or sooner for further evaluation and treatment. A referral to a manufacturing engineer chief and/or a stress test may be warranted depending upon their Suggestion. Coding Level of Care Code ED Manufacturing [employer] for Luis Vasquez
[2022-12-13 17:28] LABS: Basophils # 0.1 10^3/uL (0.0-0.1); Basophils % 0.5 %; Eosinophils # 0.2 10^3/uL (0.0-0.8); Hematocrit 52.5 % (37-53); Lymphocytes # 3.3 10^3/uL (0.8-4.8); Lymphocytes % 27.6 %; Mean Corpuscular HGB Conc 32.6 g/dL (30-55); Mean Corpuscular Hemoglobin 31.3 pg (27-33); Mean Platelet Volume 11.2 fL (7.4-10.4); Monocytes # 0.6 10^3/uL (0.2-0.9); Monocytes % 4.9 %; Neutrophils # 7.81 10^3/uL (1.8-7.7); Neutrophils % 64.8 %; Nucleated Red Blood Cells % 0 %; Platelet Count 243 10^3/cmm (157-399); Red Blood Count 5.47 10^6/uL (3.85-5.65); Red Cell Distribution Width 13.2 % (12.1-15.1); White Blood Count 12.05 10^3/uL (3.29-11.43)
[2022-12-13 17:46] LABS: D Dimer 0.37 ug/mLFEU (0-0.59)
[2022-12-13 17:50] LABS: Troponin(5th) Baseline 7 ng/L (0-15)
[2022-12-13 18:12] LABS: Alanine Aminotransferase 26 U/L (0-41); Albumin Level 3.8 g/dL (3.5-5.2); Alkaline Phosphatase 86 U/L (40-130); Aspartate Amino Transferase 16 U/L (0-40); Blood Urea Nitrogen 12 mg/dL (6-20); Calcium 8.3 mg/dL (8.5-10.5); Carbon Dioxide 28 mmol/L (22-29); Chloride 100 mmol/L (98-107); Globulin 2.9 g/dL (1.3-4.6); Glomerular Filtration Rate 87.9 mL/min (90-130); Glucose 211 mg/dL (65-115); NT Pro B Type Natriuretic Pept 71 pg/mL (0-125); Osmolality Calculated 292 mOsm/kg (285-295); Sodium 138 mmol/L (136-145); Total Bilirubin 0.4 mg/dL (0.15-1.2); Total Protein 6.7 g/dL (6.6-8.7)
[2022-12-13 18:18] LABS: Anion Gap 14.3 (5-19); Potassium 4.3 mmol/L (3.5-5.1)
[2022-12-13] MEDS: FUROsemide 10 mg/mL SDV 10mL 60 MG IVP (18:30)
--- NOTE | 2022-12-13 18:48 | ECG_ITS ---
[facility] Test Date: 2022-12-13 Pat Name: Israel Tristan Department: Room: Gender: Male Gold Nib Grinder: : 1965 Requested By: Bryan Boyd Order Number: [id number] Bimal MD: Mohit Ramirez M.D. Measurements Intervals [place] Rate: 79 P: 28 VT: 179 QRS: 250 QRSD: 165 T: 5 QT: 424 QTc: 488 Interpretive Statements SINUS RHYTHM RIGHT AXIS DEVIATION [QRS AXIS > 100] RIGHT BUNDLE BRANCH BLOCK [120+ ms QRS DURATION, UPRIGHT V1, 40+ ms S IN I/aVL/V4/V5/V6] POSSIBLE ANTERIOR MYOCARDIAL INFARCTION , OF INDETERMINATE AGE [30 ms Q WAVE IN V3/V4, OR R < 0.2 mV IN V4] Compared to ECG 12/13/2022 16:05:00 No significant changes Electronically Signed On 12-13-2022 21:40:20 CDT by Mohit Ramirez M.D. [id number]
[2022-12-13 18:50] LABS: NT Pro B Type Natriuretic Pept 72 pg/mL (0-125)
--- NOTE | 2022-12-13 19:29 | CTR_ITS ---
PROCEDURE INFORMATION: Exam: CTA Chest With Contrast Exam date and time: 12/13/2022 7:59 PM Age: 56 years old Clinical indication: Angina and dyspnea; Chest wall pain; Additional info: Dyspnea, hypoxia, chest pain TECHNIQUE: Imaging protocol: Computed tomographic angiography of the chest with contrast. Exam focused on the arteries. 3D rendering (Not supervised by radiologist): MIP and/or 3D reconstructed images were created by the technologist. Radiation optimization: All CT scans at this facility use at least one of these dose optimization techniques: automated exposure control; mA and/or kV adjustment per patient size (includes targeted exams where dose is matched to clinical indication); or iterative reconstruction. Contrast material: OMNI 350; Contrast volume: 125 ml; Contrast route: INTRAVENOUS (IV); REPORTING DATA: Count of CT and Cardiac NM exams in prior 12 months: This patient has received 0 known CTs and 0 known cardiac nuclear medicine studies in the 12 months prior to the current study. COMPARISON: CR XR chest 1V portable [id number] 12/13/2022 5:29 PM RADIATION DOSE METRICS: Total DLP (mGy-cm): 565.21 FINDINGS: Pulmonary arteries: No pulmonary embolus. Aorta: Unremarkable. No aortic aneurysm. No aortic dissection. Lungs: No focal consolidation. Pleural spaces: Unremarkable. No pneumothorax. No pleural effusion. Heart: Unremarkable. No cardiomegaly. No pericardial effusion. Lymph nodes: Unremarkable. No enlarged lymph nodes. Bones/joints: Unremarkable. No acute fracture. Soft tissues: Unremarkable. CT/CT angio chest PE protcl [id number] IMPRESSION: 1. No pulmonary embolus. 2. No focal consolidation.
[2022-12-13] MEDS: oxyCODONE-APAP 10-325 mg Tablet 1 TAB PO (19:49)
[2022-12-13 19:57] LABS: Troponin 5 2HR 6.53 ng/L (0-15); Troponin 5 2HR Delta -0.47 ABS# (0-10)
[2022-12-13 19:58] LABS: ABG PCO2 55.5 mmHg (35-45); ABG PH Result 7.37 (7.35-7.45); Alveolar-Arterial Oxygen Gradi 40.1 mmHg (5-10); Base Excess ABG 4.5 mmol/L (-2.0-2.0); Blood Gas Sample Site Brachial, right; Blood Gas Sample Type Arterial; Carboxyhemoglobin 5.4 %THgb (0.4-20.1); HCO3 ABG 31.8 mmol/L (22-26); HGB O2 Sat 92.8 % (95-100); Ionized Calcium Level - ABG 1.1 mmol/L (1.1-1.4); Methemoglobin < 0.0 % (0.4-1.5); Oxygen Device NC; Oxygen Saturation ABG 97.7; Potassium Level - ABG 3.6 mmol/L (3.5-5.0); Total Hemoglobin 17.3 g/dL (14-18)
[2022-12-13] MEDS: iohexol 350 mg/mL 500 mL Btl (per mL) IV (19:58)
== END 2022-12-13 22:47 | disposition home or self-care (01) ==
PROVIDERS: Emergency Medicine; Nurse Practitioner Family; Emergency Provider Family Medicine; PCP Family Medicine
DX: R07.89 Other chest pain (principal); Z79.82 Long term (current) use of aspirin; Z79.4 Long term (current) use of insulin; Z79.84 Long term (current) use of oral hypoglycemic drugs; F17.210 Nicotine dependence, cigarettes, uncomplicated; I11.0 Hypertensive heart disease with heart failure; I50.9 Heart failure, unspecified; E11.9 Type 2 diabetes mellitus without complications; E78.5 Hyperlipidemia, unspecified
CPT/HCPCS: 36415; 36600; 71045; 71275; 80051; 80053; 82330; 82805; 83880; 84484; 85025; 85378; 93005; 96374; 99285; J1940; Q9967